=== PATIENT | male | born 1955 | race Caucasian/White ===

== ENCOUNTER → 2016-04-30 | Outpatient (CLI) | payer OTHER ==
[~2016-04-30] MED LIST: GENT3.5O18 OD; WRF1T PO
[2016-04-30 17:00] LABS: ANION GAP 10 MMOL/L (5-14); BLOOD UREA NITROGEN 15 MG/DL (7-18); BUN/CREATININE RATIO 15; CALCIUM 9.8 MG/DL (8.5-10.1); CARBON DIOXIDE 26 MMOL/L (21-32); CHLORIDE 102 MMOL/L (98-107); CREATININE SERUM 1.01 MG/DL (0.60-1.30); GFR ESTIMATED > 60; GLUCOSE 88 MG/DL (70-105); POTASSIUM 4.1 MMOL/L (3.6-5.0); SODIUM 138 MMOL/L (135-145); URIC ACID 6.5 MG/DL (2.6-7.2)
--- NOTE | 2016-04-30 17:10 | Diagnostic Imaging Report ---
INDICATION: Left foot pain. Possible gout. FINDINGS: There are small periarticular erosions demonstrated about the distal interphalangeal joint of the great toe. There are no erosions evident at the first metatarsophalangeal joint. There is no evidence of an acute fracture. There is no dislocation. There is no focal soft tissue abnormality. IMPRESSION: 1. There are small periarticular erosions associated with the medial aspect of the interphalangeal joint of the great toe. Gout could not be excluded. There is no fracture or dislocation. Dictated by: Dictated on workstation # [id number]
== END ==
LOC: RAD 16:25
PROVIDERS: ATTEND Internal Medicine
DX: M85.872 Other specified disorders of bone density and structure, left ankle and foot (principal); M10.9 Gout, unspecified; E78.00 Pure hypercholesterolemia, unspecified
CPT/HCPCS: 36415; 73630; 80048; 84550; 85652

== ENCOUNTER → 2016-12-31 | Outpatient (CLI) | payer OTHER | LOC: WOUNDCARE 13:33 | PROVIDERS: ATTEND Surgery | DX: I70.232 Atherosclerosis of native arteries of right leg with ulceration of calf (principal); I87.331 Chronic venous hypertension (idiopathic) with ulcer and inflammation of right lower extremity; L97.212 Non-pressure chronic ulcer of right calf with fat layer exposed; I83.811 Varicose veins of right lower extremity with pain; I89.0 Lymphedema, not elsewhere classified | CPT/HCPCS: 11042 ==

== ENCOUNTER → 2017-01-09 | Outpatient (CLI) | payer OTHER | LOC: WOUNDCARE 08:54 | PROVIDERS: ATTEND Nurse Practitioner | DX: L97.212 Non-pressure chronic ulcer of right calf with fat layer exposed (principal); I87.331 Chronic venous hypertension (idiopathic) with ulcer and inflammation of right lower extremity; I89.0 Lymphedema, not elsewhere classified; I70.232 Atherosclerosis of native arteries of right leg with ulceration of calf | CPT/HCPCS: 11042 ==

== ENCOUNTER → 2017-01-16 | Outpatient (CLI) | payer OTHER | LOC: WOUNDCARE 09:00 | PROVIDERS: ATTEND Surgery | DX: L97.212 Non-pressure chronic ulcer of right calf with fat layer exposed (principal); I87.331 Chronic venous hypertension (idiopathic) with ulcer and inflammation of right lower extremity; I89.0 Lymphedema, not elsewhere classified; I70.232 Atherosclerosis of native arteries of right leg with ulceration of calf | CPT/HCPCS: 29581 ==

== ENCOUNTER → 2017-01-23 | Outpatient (CLI) | payer OTHER | LOC: WOUNDCARE 08:54 | PROVIDERS: ATTEND Surgery | DX: L97.212 Non-pressure chronic ulcer of right calf with fat layer exposed (principal); I87.331 Chronic venous hypertension (idiopathic) with ulcer and inflammation of right lower extremity; I89.0 Lymphedema, not elsewhere classified; I70.232 Atherosclerosis of native arteries of right leg with ulceration of calf | CPT/HCPCS: 29581 ==

== ENCOUNTER 2018-03-15 17:07 | Inpatient (IN) | payer OTHER ==
[~2018-03-15] VITALS: Ht 177.8 cm; Wt 117.0 kg
[2018-03-15 17:05] VITALS: BP 137/82
[2018-03-15] MEDS ORDERED: VANCOMYCIN INJECTION 1,000 MG in NS (IVPB) 250 ML IV SCH (17:30)
[2018-03-15] MEDS ORDERED: IBUPROFEN TABLET 200 MG TAB PO PRN (17:30)
[2018-03-15] MEDS ORDERED: POLYETHYLENE GLYCOL 17 GM (MIRALAX) PACK PO PRN (17:30)
[2018-03-15] MEDS ORDERED: fentaNYL INJECTION 100 MCG/2 ML AMP IVP PRN (17:30)
[2018-03-15] MEDS ORDERED: ALPRAZolam 0.25 MG (XANAX) TAB PO PRN (17:30)
[2018-03-15] MEDS ORDERED: diphenhydrAMINE 25 MG TAB (BENADRYL) PO PRN (17:30)
[2018-03-15] MEDS ORDERED: HYDROcodone/APAP 5 MG/325 MG (LORTAB) TAB PO PRN (17:30)
[2018-03-15] MEDS ORDERED: ONDANSETRON 4 MG/2 ML (SDV) Z0FRAN IVP PRN (17:30)
[2018-03-15] MEDS ORDERED: CALCIUM CARBONATE 500 MG (TUMS) TAB.CHEW PO PRN (17:30)
[2018-03-15 17:40] VITALS: BP 125/79
--- OUTSIDE RECORDS SUMMARY | 2018-03-15 17:58 | XMS REPORT | Clinical Summary ---
Author Author [facility] Organization [facility] Address Unknown Phone Unavailable Care Team Providers Care Group Fitness Manager Name Role Phone Noemy Lebron DO PCP Tyree Sadler MD [phone] Source Comments Some departments are not documenting in the electronic medical record. If you do not see the information that you expected, contact Release of Information in the Health Information Management department at [phone] for further assistance in locating additional records.[facility] Allergies No Known Allergies Medications End Date Status Medication Sig Dispensed Refills Start Date Active allopurinol (ZYLOPRIM) Take 100 mg 0 100 mg tablet by mouth daily. Take with food. Active hydroCHLOROthiazide Take 25 mg by 0 (HYDRODIURIL) 25 mg mouth every tablet morning. Active warfarin (COUMADIN) 5 mg Take 5 mg by 0 tablet mouth daily. Active potassium chloride SR Take 10 mEq 0 (K-DUR) 10 mEq tablet by mouth daily. Take with a meal and a full glass of water. Active metoprolol XL (TOPROL XL) Take 100 mg 0 100 mg extended release by mouth tablet daily. Active LISINOPRIL PO Take 2.5 mg 0 by mouth. Active MEDICAL SUPPLY, Use as 0 MISCELLANEOUS directed. (COMPRESSION STOCKINGS 20-30 mm hg MIS) pressure Active Problems Problem Noted Date Postoperative visit 07/19/2017 Chronic venous hypertension with inflammation, right 02/27/2017 Venous insufficiency of right leg 02/25/2017 Chronic deep vein thrombosis (DVT) of femoral vein of both lower 01/06/2017 extremities Postphlebitic syndrome with both ulcer and inflammation 01/06/2017 Family History Medical History Relation Name Comments Cancer Father Stroke Father Heart Disease Maternal Grandfather None Reported Maternal Grandmother None Reported Mother None Reported Paternal Grandfather None Reported Paternal Grandmother None Reported Sister Relation Name Status Comments Father Maternal Grandfather Maternal Grandmother Mother Paternal Grandfather Paternal Grandmother Sister 1 Social History Date Tobacco Use Types Packs/Day Years Used Quit: 01/06/1987 Former Smoker Smokeless Tobacco: Never Used Alcohol Use Drinks/Week oz/Week Comments No Sex Assigned at Date Recorded Not on file Industry Job Start Date Occupation Not on file Not on file Not on file Travel End Travel History Travel Start No recent travel history available. Last Filed Vital Signs Time Taken Vital Sign Reading 07/14/2017 11:48 AM CDT Blood Pressure 160/70 - Pulse - - Temperature - - Respiratory Rate - - Oxygen Saturation - - Inhaled Oxygen - Concentration 07/14/2017 11:48 AM CDT Weight 117.5 kg (259 lb) 07/14/2017 11:48 AM CDT Height 177.8 cm (5' 10") 07/14/2017 11:48 AM CDT Body Mass Index 37.16 Plan of Treatment Health Maintenance Due Date Last Done Comments HEPATITIS C SCREENING 1955 PHYSICAL (COMPREHENSIVE) 01/27/1963 EXAM HIV SCREENING 01/27/1971 DTAP/TDAP VACCINES (1 - 01/27/1974 Tdap) COLORECTAL CANCER 01/27/2006 SCREENING SHINGLES RECOMBINANT 01/27/2006 VACCINE (1 of 2) INFLUENZA VACCINE 10/28/2017 Results Not on filefrom Last 3 Months Advance Directives Patient has advance care planning documents on file. For more information, please contact: [facility] [address] [place] [address]
--- OUTSIDE RECORDS SUMMARY | 2018-03-15 17:58 | XMS REPORT | Clinical Summary ---
Author Author [facility] Organization [facility] Address Unknown Phone Unavailable Care Team Providers Care El Teacher Name Role Phone Noemy Lebron MD PCP Allergies No Known Allergies Current Medications Prescription Sig. Disp. Refills Start End Date Status Date metoprolol tartrate Take 100 mg by mouth Active (LOPRESSOR) 100 MG tablet daily. lisinopril Take 5 mg by mouth daily. Active (PRINIVIL,ZESTRIL) 2.5 MG tablet hydroCHLOROthiazide Take 25 mg by mouth Active (HYDRODIURIL) 25 MG daily. tablet allopurinol (ZYLOPRIM) Take 100 mg by mouth Active 100 MG tablet daily. warfarin (COUMADIN) 5 MG Take 5 mg by mouth every Active tablet evening. enoxaparin (LOVENOX) 100 Inject 100 mg under the Active mg/mL Syrg skin every 12 (twelve) hours. ofloxacin (OCUFLOX) 0.3 % Instill 1 drop into the 5 mL 0 06/02/20 Active ophthalmic solution right eye 4 (four) times 18 a day. homatropine (ISOPTO Instill 1 drop into the 15 mL 0 06/02/20 Active HOMATROPINE) 5 % right eye 2 (two) times a 18 ophthalmic solution day. prednisoLONE acetate Instill 1 drop into the 5 mL 0 06/02/20 Active (PRED FORTE) 1 % right eye 4 (four) times 18 ophthalmic suspension a day. Active Problems Problem Noted Date Recent partial retinal detachment, right 08/26/2017 Lattice degeneration of peripheral retina, left 08/26/2017 Social History Tobacco Use Types Packs/Day Years Used Date Former Smoker Smokeless Tobacco: Never Used Alcohol Use Drinks/Week oz/Week Comments No Sex Assigned at Date Recorded Not on file Last Filed Vital Signs Vital Sign Reading Time Taken Blood Pressure 116/62 08/29/2017 11:44 AM CDT Pulse 55 08/29/2017 11:44 AM CDT Temperature 37.1 C (98.8 F) 08/29/2017 11:44 AM CDT Respiratory Rate 16 08/29/2017 11:44 AM CDT Oxygen Saturation 93% 08/29/2017 11:44 AM CDT Inhaled Oxygen - - Concentration Weight 112 kg (247 lb) 08/28/2017 8:36 AM CDT Height 177.8 cm (5' 10") 08/28/2017 8:29 PM CDT Body Mass Index 35.44 08/28/2017 8:36 AM CDT Plan of Treatment Not on file Implants Implanted Type Area Garbage Pick Up Man Device Expiration Model / Identifier Date Serial / Lot Implant Eye Retinal Sponge Grooved Non-Tissue Right: Eye PALAUAN 2020 92-50-6.4 2.3mm X 6.4mm Style 516g 92-50-6.4 Implant OPHTHALMIC / - [id number] / Implanted: Qty: 1 on 08/28/2017 by [id number] Antonio Colbert MD Implant Eye Scleral Buckle Band Non-Tissue Right: Eye PALAUAN 2020 92-02 / Silicone Style 240 2.5 92-02 - Implant OPHTHALMIC / [id number] Implanted: Qty: 1 on 08/28/2017 by Antonio Colbert MD Trapeze In Leg Vein Occlusion Device Results Not on filefrom Last 3 Months
--- OUTSIDE RECORDS SUMMARY | 2018-03-15 17:59 | XMS REPORT | Continuity of Care Document ---
Author Author [facility] Organization [facility] Address Unknown Phone Unavailable Allergies Active Description Code Type Severity Reaction Onset Reported/Identified Relationship to Patient Clinical Status Yes No Known Drug Allergies [id number] Drug Allergy Unknown N/A 07/13/2011 Medications There is no data. Problems Date Dx Coded Attending Type Code Diagnosis Diagnosed By 07/13/2011 Ot 918.0 SUPERFIC INJ PERIOCULAR 07/13/2011 Ot E000.8 OTHER EXTERNAL CAUSE STATUS 07/13/2011 Ot E029.9 OTHER ACTIVITY 07/13/2011 Ot E849.0 ACCIDENT IN HOME 07/13/2011 Ot E928.9 ACCIDENT NOS 07/13/2011 Ot V06.1 DIPHTHERIA- TETANUS-PERTUSSIS, COMBINED [ 01/23/2015 ELISEO PENNINGTON, PAULA Fuentes Ot R10.32 02/14/2015 ELISEO PENNINGTON, PAULA Fuentes Ot R10.32 04/03/2015 VASQUEZ RINALDI MD Ot I82.431 04/03/2015 VASQUEZ RINALDI MD Ot I82.441 04/03/2015 VASQUEZ RINALDI MD Ot I89.0 04/24/2015 VASQUEZ RINALDI MD Ot I82.431 04/24/2015 VASQUEZ RINALDI MD Ot I82.441 04/24/2015 VASQUEZ RINALDI MD Ot I89.0 04/30/2016 ELISEO PENNINGTON, PAULA Fuentes Ot R10.32 LEFT LOWER QUADRANT PAIN 04/30/2016 VASQUEZ RINALDI MD Ot I82.431 ACUTE EMBOLISM AND THROMBOSIS OF RIGHT P 04/30/2016 VASQUEZ RINALDI MD Ot I82.441 ACUTE EMBOLISM AND THROMBOSIS OF RIGHT T 04/30/2016 NIMCO PENNINGTON, VASQUEZ Dos Santos Ot I89.0 LYMPHEDEMA, NOT ELSEWHERE CLASSIFIED 05/01/2016 MAGGIE LÓPEZ DO Ot E78.00 PURE HYPERCHOLESTEROLEMIA, UNSPECIFIED 05/01/2016 MAGGIE LÓPEZ DO Ot M10.9 GOUT, UNSPECIFIED 05/01/2016 MAGGIE LÓPEZ DO Ot M85.872 OTH DISRD OF BONE DENSITY AND STRUCTURE, 06/02/2016 ULI LÓPEZ DOI Ot E78.00 PURE HYPERCHOLESTEROLEMIA, UNSPECIFIED 06/02/2016 RENE RUST MAGGIE Ot M10.9 GOUT, UNSPECIFIED 06/02/2016 MAGGIE LÓPEZ DO Ot M85.872 [facility] DISRD OF BONE DENSITY AND STRUCTURE, 01/19/2017 VASQUEZ RINALDI MD, Ot 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 01/19/2017 VASQUEZ RINALDI MD, Ot I87.331 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 01/19/2017 VASQUEZ RINALDI MD, Ot I89.0 LYMPHEDEMA, NOT ELSEWHERE CLASSIFIED 01/19/2017 VASQUEZ RINALDI MD, Ot L97.212 NON-PRESSURE CHRONIC ULCER OF RIGHT CALF 01/22/2017 VASQUEZ RINALDI MD, Ot 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 Results Test Result Range Whole blood basic metabolic panel - 04/30/16 16:37 Serum or plasma sodium measurement (moles/volume) 138 mmol/L 135-145 Serum or plasma potassium measurement (moles/volume) 4.1 mmol/L 3.6-5.0 Serum or plasma chloride measurement (moles/volume) 102 mmol/L 98-107 Carbon dioxide 26 mmol/L 21-32 Serum or plasma anion gap determination (moles/volume) 10 mmol/L 5-14 Serum or plasma urea nitrogen measurement (mass/volume) 15 mg/dL 7-18 Serum or plasma creatinine measurement (mass/volume) 1.01 mg/dL 0.60-1.30 Serum or plasma urea nitrogen/creatinine mass ratio 15 NRG Serum or plasma creatinine measurement with calculation of estimated glomerular filtration rate > NRG Serum or plasma glucose measurement (mass/volume) 88 mg/dL 70-105 Serum or plasma calcium measurement (mass/volume) 9.8 mg/dL 8.5-10.1 Serum or plasma uric acid measurement (mass/volume) - 04/30/16 16:37 Serum or plasma uric acid measurement (mass/volume) 6.5 mg/dL 2.6-7.2 Erythrocyte sedimentation rate by westergren method - 04/30/16 16:37 Erythrocyte sedimentation rate by westergren method 4 mm 0-30 Encounters ACCT No. Visit Date/Time Discharge Status Pt. Type Provider Facility Loc./Unit Complaint [id number] 01/30/2017 08:04:00 01/30/2017 23:59:59 CLS Outpatient VASQUEZ RINALDI MD [facility] [id number] 01/23/2017 08:54:00 01/23/2017 23:59:59 CLS Outpatient VASQUEZ RINALDI MD [facility] [id number] 01/16/2017 09:00:00 01/16/2017 23:59:59 CLS Outpatient VASQUEZ RINALDI MD [facility] [id number] 01/09/2017 08:54:00 01/09/2017 23:59:59 CLS Outpatient DOUGLAS BUSTOS APRN [facility] [id number] 12/31/2016 13:33:00 12/31/2016 23:59:59 CLS Outpatient VASQUEZ RINALDI MD [facility] [id number] 04/30/2016 16:25:00 04/30/2016 23:59:59 CLS Outpatient MAGGIE LÓPEZ DO [facility] RAD PAIN LEFT FOOT [id number] 04/25/2015 00:10:00 04/25/2015 23:59:59 CLS Preadmit VASQUEZ RINALDI MD [facility] [id number] 04/02/2015 10:23:00 04/24/2015 00:01:00 DIS Outpatient VASQUEZ RINALDI MD [facility] [id number] 01/08/2015 16:47:00 01/08/2015 23:59:59 CLS Outpatient ELISEO PENNINGTON, PAULA Fuentes [facility] RAD LEFT ING PAIN [id number] 07/13/2011 09:23:00 Document Registration
[2018-03-15] MEDS ORDERED: PIPERACILLIN/TAZO 4.5 GM/NS 100 ML IV NR ×2 (18:00)
[2018-03-15] MEDS ORDERED: HYDR25TA4 PO (19:00)
[2018-03-15] MEDS ORDERED: VANCOMYCIN 2000 MG/NS 500 ML IVPB IV SCH ×2 (19:00)
[2018-03-15] MEDS ORDERED: WARF5TAB PO (19:00)
[2018-03-15] MEDS ORDERED: ALLO300T80 PO (19:01)
[2018-03-15 19:02] LABS: BASOPHILS # (AUTO) 0.1 10^3/uL (0.0-0.1); BASOPHILS % (AUTO) 1 % (0-10); EOSINOPHILS # (AUTO) 0.3 10^3/uL (0.0-0.3); EOSINOPHILS % (AUTO) 3 % (0-10); HEMATOCRIT 43 % (40-54); HEMOGLOBIN 14.4 G/DL (13.3-17.7); LYMPHOCYTES # (AUTO) 2.8 X 10^3 (1.0-4.0); LYMPHOCYTES % (AUTO) 35 % (12-44); MEAN CORPUSCULAR HEMOGLOBIN 30 PG (25-34); MEAN CORPUSCULAR HGB CONC 33 G/DL (32-36); MEAN CORPUSCULAR VOLUME 89 FL (80-99); MEAN PLATELET VOLUME 10.8 FL (7.4-10.4); MONOCYTES # (AUTO) 0.5 X 10^3 (0.0-1.0); MONOCYTES % (AUTO) 6 % (0-12); NEUTROPHILS # (AUTO) 4.5 X 10^3 (1.8-7.8); NEUTROPHILS % (AUTO) 55 % (42-75); PLATELET COUNT 239 10^3/uL (130-400); RED BLOOD COUNT 4.83 10^6/uL (4.35-5.85); RED CELL DISTRIBUTION WIDTH 14.1 % (10.0-14.5); WHITE BLOOD COUNT 8.1 10^3/uL (4.3-11.0)
[2018-03-15] MEDS ORDERED: METO-395 PO (19:02)
[2018-03-15] MEDS ORDERED: INDO25CA15 PO (19:04)
[2018-03-15] MEDS ORDERED: LISI2.5T PO (19:06)
[2018-03-15] MEDS ORDERED: POTA10TA6 PO (19:07)
[2018-03-15 19:08] LABS: INR 2.2 (0.8-1.4); PROTHROMBIN TIME PATIENT 24.6 SEC (12.2-14.7)
[2018-03-15 19:16] LABS: ALANINE AMINOTRANSFERASE 33 U/L (0-55); ALBUMIN 3.9 GM/DL (3.2-4.5); ALKALINE PHOSPHATASE 72 U/L (40-136); BILIRUBIN,TOTAL 0.4 MG/DL (0.1-1.0); BUN/CREATININE RATIO 18; CALCIUM 9.6 MG/DL (8.5-10.1); CARBON DIOXIDE 23 MMOL/L (21-32); CHLORIDE 106 MMOL/L (98-107); CREATININE SERUM 0.83 MG/DL (0.60-1.30); GFR ESTIMATED > 60; GLUCOSE 86 MG/DL (70-105); POTASSIUM 3.7 MMOL/L (3.6-5.0); SODIUM 139 MMOL/L (135-145)
[2018-03-15] MEDS ORDERED: ENOXAPARIN 40 MG/0.4 ML (LOVENOX) SYR SC SCH (19:30)
[2018-03-15 19:35] VITALS: BP 125/75
[2018-03-15] MEDS ORDERED: FLU QUADRIvalent (5+ YOA) 2018-2019 (AFLURIA) 0.5 ML IM ONE (20:30)
[2018-03-15] MEDS: BETAMETHASONE/CLOTRIM CREAM (LOTRISONE) 45 GM TP SCH (21:25)
[2018-03-15] MEDS: methylPREDNISolone 40 MG/ML (Solu-MEDROL) VIAL IV SCH (21:25)
[2018-03-15] MEDS: TRIAMCINOLONE 0.5% CR (KENALOG) 15 GM TUBE TOP SCH (21:26)
[2018-03-16 00:08] VITALS: BP 147/77
[2018-03-16] MEDS: PIPERACILLIN SODIUM/TAZOBACTAM 4.5 GM in NS (IVPB) 100 ML IV SCH ×3 (00:16→16:02)
[2018-03-16 04:00] VITALS: BP 132/71
[2018-03-16] MEDS: VANCOMYCIN 1,750 MG/NS 500 ML IVPB IV SCH ×4 (06:09→18:45)
[2018-03-16 06:10] LABS: BASOPHILS % (AUTO) 0 % (0-10); EOSINOPHILS % (AUTO) 0 % (0-10); HEMATOCRIT 46 % (40-54); HEMOGLOBIN 15.6 G/DL (13.3-17.7); LYMPHOCYTES # (AUTO) 1.2 X 10^3 (1.0-4.0); LYMPHOCYTES % (AUTO) 20 % (12-44); MEAN CORPUSCULAR HEMOGLOBIN 30 PG (25-34); MEAN CORPUSCULAR HGB CONC 34 G/DL (32-36); MEAN CORPUSCULAR VOLUME 89 FL (80-99); MEAN PLATELET VOLUME 10.7 FL (7.4-10.4); MONOCYTES # (AUTO) 0.1 X 10^3 (0.0-1.0); MONOCYTES % (AUTO) 1 % (0-12); NEUTROPHILS # (AUTO) 4.8 X 10^3 (1.8-7.8); NEUTROPHILS % (AUTO) 80 % (42-75); PLATELET COUNT 270 10^3/uL (130-400); RED BLOOD COUNT 5.18 10^6/uL (4.35-5.85); RED CELL DISTRIBUTION WIDTH 14.2 % (10.0-14.5)
[2018-03-16 06:21] LABS: INR 2.1 (0.8-1.4); PROTHROMBIN TIME PATIENT 23.8 SEC (12.2-14.7)
[2018-03-16 06:27] LABS: ALANINE AMINOTRANSFERASE 34 U/L (0-55); ALBUMIN 3.8 GM/DL (3.2-4.5); ALKALINE PHOSPHATASE 73 U/L (40-136); BILIRUBIN,TOTAL 0.5 MG/DL (0.1-1.0); BUN/CREATININE RATIO 19; CALCIUM 9.2 MG/DL (8.5-10.1); CARBON DIOXIDE 20 MMOL/L (21-32); CHLORIDE 111 MMOL/L (98-107); CREATININE SERUM 0.85 MG/DL (0.60-1.30); GFR ESTIMATED > 60; GLUCOSE 156 MG/DL (70-105); POTASSIUM 4.1 MMOL/L (3.6-5.0); SODIUM 140 MMOL/L (135-145); TOTAL PROTEIN 6.9 GM/DL (6.4-8.2)
[2018-03-16 08:00] VITALS: BP 150/80
[2018-03-16] MEDS: methylPREDNISolone 40 MG/ML (Solu-MEDROL) VIAL IV SCH ×2 (08:21→21:47)
[2018-03-16] MEDS: INDOMETHACIN 25 MG (INDOCIN) CAP PO SCH (08:22)
[2018-03-16] MEDS: KCL 10 MEQ TAB (MICRO K) PO SCH (08:22)
[2018-03-16] MEDS: BETAMETHASONE/CLOTRIM CREAM (LOTRISONE) 45 GM TP SCH ×2 (08:23→21:49)
[2018-03-16] MEDS: HYDROCHLOROTHIAZIDE 25 MG (HCTZ) TAB PO SCH (08:23)
[2018-03-16] MEDS: lisINopril 5 MG (PRINIVIL) TABLET PO SCH (08:23)
[2018-03-16] MEDS: ALLOPURINOL 300 MG (ZYLOPRIM) TAB PO SCH (08:23)
[2018-03-16] MEDS: TRIAMCINOLONE 0.5% CR (KENALOG) 15 GM TUBE TOP SCH ×2 (08:24→21:48)
[2018-03-16] MEDS: meTOprolol SUCCINATE 100 MG (TOPROL XL) TAB PO SCH (08:25)
[2018-03-16] MEDS ORDERED: ALLOPURINOL 300 MG PO SCH (09:00)
[2018-03-16] MEDS ORDERED: INDOMETHACIN 25 MG PO SCH (09:00)
[2018-03-16] MEDS ORDERED: NON-FORMULARY MEDICATION 1 EA EA (Lisinopril 2.5 MG) PO SCH (09:00)
[2018-03-16] MEDS ORDERED: NON-FORMULARY MEDICATION 1 EA EA (Hydrochlorothiazide 25 MG) PO SCH (09:00)
--- NOTE | 2018-03-16 09:14 | Diagnostic Imaging Report ---
INDICATION: Right leg cellulitis, edema, pain. TECHNIQUE: Grayscale with color-flow and Doppler waveform evaluation of the right lower extremity deep venous system. CORRELATION STUDY: None FINDINGS: Color and grayscale sonographic images demonstrate no intraluminal defect within the visualized portion of the common femoral, superficial femoral and/or popliteal veins to suggest thrombus formation. These vessels demonstrate normal response to compression and augmentation. No soft tissue fluid collection. IMPRESSION: 1. Negative for deep venous thrombosis of the right leg. Dictated by: Dictated on workstation # [id number]
--- NOTE | 2018-03-16 10:20 | History & Physical-Hospitalist ---
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 They place wraps on the right leg daily since vascular surgery done in the past and noted the swelling had increased and redness had started which prompted the call to my office yesterday. He was found to have complicated cellulitis in need of IV abx to resolve. He was also itching in his arms which had just started the prior 2 days. Source: patient, family Exam Limitations: no limitations Date Seen 03/16/18 Time Seen by a Provider: 09:30 Attending Physician Noemy López DO PCP Noemy López DO Referring Physician Date of Admission Mar 15, 2018 at 17:40 Home Medications & Allergies Home Medications Reviewed patient Home Medication Reconciliation performed by pharmacy medication reconciliations residential service technician and/or nursing. Patients Allergies have been reviewed. Allergies Allergies Coded Allergies No Known Drug Allergies (Unverified07/13/11) Past Yivhtrw-Pgtrjn-Afmhyp Hx Past Med/Social Hx: Reviewed Nursing Past Med/Soc Hx, Reviewed and Corrections made Patient Social History Marrital Status: Employed/Student: employed ([employer]) Alcohol Use: Denies Use Recreational Drug Use: No Smoking Status: Former Smoker Former Smoker, Quit: Mar 15, 1982 Type Used: Cigarettes Physical Abuse Screen: No Sexual Abuse: No Recent Foreign Travel: No Recent Hopitalizations: Yes Seasonal Allergies Seasonal Allergies: No Past Medical History Surgeries: Vascular Surgery (right leg in [place]) Currently Using CPAP: No Currently Using BIPAP: No Cardiac: Deep Vein Thrombosis, High Cholesterol, Hypertension Musculoskeletal: Fractures HEENT: Cataract History of Blood Disorders: Yes (DVT PROBLEMS ( PODDIBLE BLOOD DISORDER )) Family History Cardiovascular disease 19 FATHER Cataracts (NO) 19 FATHER Colon cancer 19 FATHER FH: lupus G8 SISTER Hypertension Review of Systems Constitutional: see HPI, weakness EENTM: no symptoms reported Cardiovascular: no symptoms reported Gastrointestinal: no symptoms reported Genitourinary: no symptoms reported Musculoskeletal: see HPI Skin: see HPI Psychiatric/Neurological: No Symptoms Reported All Other Systems Reviewed Negative Unless Noted: Yes Physical Exam Physical Exam Vital Signs Vital Signs - First Documented 03/15/18 17:40 Temp 97.5 Pulse 52 Resp 20 B/P (MAP) 125/79 (94) Pulse Ox 94 O2 Delivery Room Air Capillary Refill : Height, Weight, BMI Height: 5'10.00" Weight: 258lbs. 0.0oz. 117.342563hu; 37.0 BMI Method:Stated General Appearance: No Apparent Distress, WD/WN, Chronically ill Eyes: Bilateral Eye Normal Inspection, Bilateral Eye PERRL HEENT: PERRL/EOMI, Normal ENT Inspection, Pharynx Normal Neck: Full Range of Motion, Normal Inspection, Non Tender, Supple, Carotid Bruit Respiratory: Chest Non Tender, Lungs Clear, Normal Breath Sounds, No Accessory Muscle Use, No Respiratory Distress Cardiovascular: Regular Rate, Rhythm, No Gallop, No JVD, No Murmur, Normal Peripheral Pulses Gastrointestinal: Normal Bowel Sounds, No Organomegaly, No Pulsatile Mass, Non Tender, Soft Back: Normal Inspection, No CVA Tenderness, No Vertebral Tenderness Extremity: Normal Capillary Refill, Normal Inspection, Normal Range of Motion, Non Tender, No Calf Tenderness, Inflammation (R leg), Pedal Edema Neurologic/Psychiatric: Alert, Oriented x3, No Motor/Sensory Deficits, Normal Mood/Affect Skin: Normal Color, Warm/Dry, Erythema (R leg), Rash (L arm) Lymphatic: No Adenopathy Results Results/Procedures Labs Laboratory Tests 03/15/18 18:40 03/16/18 05:45 Patient resulted labs reviewed. Assessment/Plan Admission Diagnosis Assessment: Right leg cellulitis Prior DVT's in right leg maintained on Coumadin with INR 2.2 with no DVT on venous doppler HTN Gout Plan: IV abx Pain control Home meds Admission Status: Inpatient Order (span 2 midnights) Reason for Inpatient Admission: Severe cellulits in complicated right leg with lymphedema and prior DVT's will require 3 days of hospital care Diagnosis/Problems Diagnosis/Problems (1) History of DVT of lower extremity Status: Chronic (2) Cellulitis and abscess of right leg Status: Acute (3) Lymphedema of right lower extremity Status: Chronic (4) Hypertension Status: Chronic Qualifiers: Hypertension type: essential hypertension Qualified Codes: I10 - Essential (primary) hypertension (5) Dermatitis Status: Acute (6) Gout Status: Chronic Qualifiers: Gout site: unspecified site Gout etiology: unspecified cause Chronicity: unspecified Qualified Codes: M10.9 - Gout, unspecified Clinical Quality Measures DVT/VTE Risk/Contraindication: Risk Factor Score Per Nursin RFS Level Per Nursing on Admit: 4+=Very High JUAN DAVILA MED STUDENT 03/16/18 1111: History of Present Illness HPI/Chief Complaint CC: R leg cellulitis HPI: This is a 63 yo WM with a PMHx of DVTs who was admitted to [facility] yesterday due to R leg cellulitis. Pt states that the erythema and swelling began on Thursday and continued to get worse. He thought the infection might have gone to his blood stream because he "started to become itchy all over". Denies any fevers, N/V/D. Does not report any pain in his leg. CBC and CMP on admission were WNL. Doppler u/s of R leg was negative for DVT. Pt was placed on vancomycin and piperacillin/tazobactam on admission. Source: patient Past Kzbjqkz-Nzlpnx-Ytvubx Hx Family History Cardiovascular disease 19 FATHER Cataracts (NO) 19 FATHER Colon cancer 19 FATHER FH: lupus G8 SISTER Review of Systems Constitutional: no symptoms reported Respiratory: no symptoms reported Cardiovascular: no symptoms reported Musculoskeletal: see HPI Skin: see HPI Psychiatric/Neurological: No Symptoms Reported Physical Exam Physical Exam General Appearance: No Apparent Distress Respiratory: Chest Non Tender, Lungs Clear, Normal Breath Sounds Cardiovascular: Regular Rate, Rhythm, No Murmur, Normal Peripheral Pulses Extremity: Normal Capillary Refill, Inflammation (R leg), Swelling (R leg) Neurologic/Psychiatric: Alert, Oriented x3, Normal Mood/Affect Skin: Warm/Dry, Erythema (R leg), Rash (L arm) Assessment/Plan Admission Diagnosis R leg cellulitis Assessment and Plan Assessment: R leg cellulitis Hx of DVTs HTN Plan: Continue IV abx Lovenox Elevate leg above heart Keep wrapping off of leg for now Monitor for pain Diagnosis/Problems Diagnosis/Problems (1) Cellulitis and abscess of right leg Status: Acute (2) History of DVT of lower extremity Status: Chronic NOEMY LÓPEZ DO Mar 16, 2018 10:20 JUAN DAVILA MED STUDENT Mar 16, 2018 11:11
[2018-03-16] MEDS ORDERED: PRED5DRO24 OD (10:53)
[2018-03-16] MEDS ORDERED: ALLO100T PO (10:55)
[2018-03-16] MEDS ORDERED: LISI2.5T PO (10:55)
[2018-03-16 11:26] VITALS: BP 145/84
[2018-03-16 16:05] VITALS: BP 152/62
[2018-03-16 19:30] VITALS: BP 130/76
[2018-03-16] MEDS: warFARin 5 MG (COUMADIN) TAB PO SCH (21:48)
[2018-03-17] VITALS: BP 128/59
[2018-03-17] MEDS: PIPERACILLIN SODIUM/TAZOBACTAM 4.5 GM in NS (IVPB) 100 ML IV SCH ×3 (00:06→16:05)
[2018-03-17 04:00] VITALS: BP 142/68
[2018-03-17 04:37] LABS: PROTHROMBIN TIME PATIENT 22.5 SEC (12.2-14.7)
[2018-03-17] MEDS ORDERED: TROUGH ORDER-PHARMACY XX NR (06:00)
[2018-03-17] MEDS: VANCOMYCIN 1,750 MG/NS 500 ML IVPB IV SCH ×4 (06:49→18:11)
[2018-03-17 08:00] VITALS: BP 140/73
[2018-03-17] MEDS: KCL 10 MEQ TAB (MICRO K) PO SCH (08:22)
[2018-03-17] MEDS: meTOprolol SUCCINATE 100 MG (TOPROL XL) TAB PO SCH (08:22)
[2018-03-17] MEDS: ALLOPURINOL 300 MG (ZYLOPRIM) TAB PO SCH (08:22)
[2018-03-17] MEDS: methylPREDNISolone 40 MG/ML (Solu-MEDROL) VIAL IV SCH (08:22)
[2018-03-17] MEDS: INDOMETHACIN 25 MG (INDOCIN) CAP PO SCH (08:23)
[2018-03-17] MEDS: lisINopril 5 MG (PRINIVIL) TABLET PO SCH (08:23)
[2018-03-17] MEDS: HYDROCHLOROTHIAZIDE 25 MG (HCTZ) TAB PO SCH (08:23)
[2018-03-17] MEDS: BETAMETHASONE/CLOTRIM CREAM (LOTRISONE) 45 GM TP SCH ×2 (08:24→20:44)
[2018-03-17] MEDS: TRIAMCINOLONE 0.5% CR (KENALOG) 15 GM TUBE TOP SCH ×2 (08:24→20:44)
--- NOTE | 2018-03-17 10:37 | Progress Note-Hospitalist ---
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 They place wraps on the right leg daily since vascular surgery done in the past and noted the swelling had increased and redness had started which prompted the call to my office yesterday. He was found to have complicated cellulitis in need of IV abx to resolve. He was also itching in his arms which had just started the prior 2 days. Subjective/Events-last exam Patient did not sleep too well last night so he was sleeping when I saw him this morning reports no pain issues Improved right leg Focused Exam Lactate Level 03/15/18 18:40: Lactic Acid Level 0.85 Objective Exam Vital Signs Vital Signs Date Time Temp Pulse Resp B/P (MAP) Pulse Ox O2 Delivery O2 Flow Rate FiO2 03/17/18 15:41 97.4 55 18 134/60 (84) 94 Room Air Capillary Refill : General Appearance: No Apparent Distress, WD/WN, Chronically ill, Other ( sleeping) Extremity: Swelling (improved right leg with resolving redness) Results/Procedures Lab Patient resulted labs reviewed. Assessment/Plan Assessment and Plan Assess & Plan/Chief Complaint Assessment: Continue abx Tinea cream to leg Likely DC tomorrow Decrease steroids Diagnosis/Problems Diagnosis/Problems (1) History of DVT of lower extremity Status: Chronic (2) Cellulitis and abscess of right leg Status: Acute (3) Lymphedema of right lower extremity Status: Chronic (4) Hypertension Status: Chronic Qualifiers: Hypertension type: essential hypertension Qualified Codes: I10 - Essential (primary) hypertension (5) Dermatitis Status: Acute (6) Gout Status: Chronic Qualifiers: Gout site: unspecified site Gout etiology: unspecified cause Chronicity: unspecified Qualified Codes: M10.9 - Gout, unspecified Clinical Quality Measures DVT/VTE Risk/Contraindication: Risk Factor Score Per Nursin RFS Level Per Nursing on Admit: 4+=Very High JUAN DAVILA MED STUDENT 03/17/18 1122: Subjective Subjective/Events-last exam Pt did well overnight- no complaints or concerns this morning Swelling and erythema have decreased quite a bit overnight- pt denies any pain No bowel/bladder problems Objective Exam General Appearance: No Apparent Distress Respiratory: Lungs Clear, No Accessory Muscle Use, No Respiratory Distress Cardiovascular: Regular Rate, Rhythm, No Murmur Extremity: Normal Capillary Refill, No Calf Tenderness, Swelling (R leg) Neurologic/Psychiatric: Alert, Oriented x3, No Motor/Sensory Deficits, Normal Mood/Affect Assessment/Plan Assessment and Plan Assess & Plan/Chief Complaint Assessment: R leg cellulitis Hx of DVTs HTN Plan: IV abx Continue to elevate leg Pain mgmt Possible d/c tomorrow MAGGIE LÓPEZ DO Mar 17, 2018 10:37 JUAN DAVILA MED STUDENT Mar 17, 2018 11:22
[2018-03-17] MEDS: ACETAMINOPHEN 500 MG TAB (TYLENOL) PO PRN (12:08)
[2018-03-17 15:41] VITALS: BP 134/60
[2018-03-17] MEDS: warFARin 5 MG (COUMADIN) TAB PO SCH (20:43)
[2018-03-18] VITALS: BP 126/62
[2018-03-18] MEDS: PIPERACILLIN SODIUM/TAZOBACTAM 4.5 GM in NS (IVPB) 100 ML IV SCH ×2 (00:45→09:07)
[2018-03-18 03:49] LABS: BASOPHILS % (AUTO) 0 % (0-10); EOSINOPHILS % (AUTO) 0 % (0-10); HEMATOCRIT 43 % (40-54); HEMOGLOBIN 14.2 G/DL (13.3-17.7); LYMPHOCYTES # (AUTO) 2.9 X 10^3 (1.0-4.0); LYMPHOCYTES % (AUTO) 17 % (12-44); MEAN CORPUSCULAR HEMOGLOBIN 30 PG (25-34); MEAN CORPUSCULAR HGB CONC 33 G/DL (32-36); MEAN CORPUSCULAR VOLUME 89 FL (80-99); MEAN PLATELET VOLUME 10.5 FL (7.4-10.4); MONOCYTES # (AUTO) 0.9 X 10^3 (0.0-1.0); MONOCYTES % (AUTO) 5 % (0-12); NEUTROPHILS # (AUTO) 13.3 X 10^3 (1.8-7.8); NEUTROPHILS % (AUTO) 78 % (42-75); PLATELET COUNT 254 10^3/uL (130-400); RED BLOOD COUNT 4.78 10^6/uL (4.35-5.85); RED CELL DISTRIBUTION WIDTH 14.7 % (10.0-14.5); WHITE BLOOD COUNT 17.1 10^3/uL (4.3-11.0)
[2018-03-18 04:01] LABS: INR 2.1 (0.8-1.4); PROTHROMBIN TIME PATIENT 23.9 SEC (12.2-14.7)
[2018-03-18 04:07] LABS: ALANINE AMINOTRANSFERASE 28 U/L (0-55); ALBUMIN 3.2 GM/DL (3.2-4.5); ALKALINE PHOSPHATASE 62 U/L (40-136); BILIRUBIN,TOTAL 0.3 MG/DL (0.1-1.0); BUN/CREATININE RATIO 16; CALCIUM 8.3 MG/DL (8.5-10.1); CARBON DIOXIDE 23 MMOL/L (21-32); CHLORIDE 109 MMOL/L (98-107); CREATININE SERUM 0.93 MG/DL (0.60-1.30); GFR ESTIMATED > 60; GLUCOSE 128 MG/DL (70-105); POTASSIUM 3.4 MMOL/L (3.6-5.0); SODIUM 141 MMOL/L (135-145); TOTAL PROTEIN 5.8 GM/DL (6.4-8.2)
[2018-03-18 04:12] LABS: BAND NEUTROPHILS 1 %; BASOPHILS % (MANUAL) 0 %; EOSINOPHILS % (MANUAL) 0 %; LYMPHOCYTES % (MANUAL) 8 %; MONOCYTES % (MANUAL) 3 %; NEUTROPHILS % (MANUAL) 77 %; RBC MORPH NORMAL; REACTIVE LYMPHOCYTES 11 %
[2018-03-18] MEDS: VANCOMYCIN 1,750 MG/NS 500 ML IVPB IV SCH ×2 (06:46)
[2018-03-18] MEDS: ACETAMINOPHEN 500 MG TAB (TYLENOL) PO PRN (06:55)
[2018-03-18 08:00] VITALS: BP 153/86
[2018-03-18] MEDS ORDERED: methylPREDNISolone 40 MG/ML (Solu-MEDROL) VIAL IV SCH (09:00)
[2018-03-18] MEDS: KCL 10 MEQ TAB (MICRO K) PO SCH (09:07)
[2018-03-18] MEDS: lisINopril 5 MG (PRINIVIL) TABLET PO SCH (09:07)
[2018-03-18] MEDS: INDOMETHACIN 25 MG (INDOCIN) CAP PO SCH (09:07)
[2018-03-18] MEDS: HYDROCHLOROTHIAZIDE 25 MG (HCTZ) TAB PO SCH (09:07)
[2018-03-18] MEDS: ALLOPURINOL 300 MG (ZYLOPRIM) TAB PO SCH (09:07)
[2018-03-18] MEDS: TRIAMCINOLONE 0.5% CR (KENALOG) 15 GM TUBE TOP SCH (09:13)
[2018-03-18] MEDS: BETAMETHASONE/CLOTRIM CREAM (LOTRISONE) 45 GM TP SCH (09:13)
[2018-03-18] MEDS: meTOprolol SUCCINATE 100 MG (TOPROL XL) TAB PO SCH (09:16)
[2018-03-18] MEDS ORDERED: CLOT15CR6 TP (09:54)
[2018-03-18] MEDS ORDERED: DOXY100C2 PO (09:54)
--- NOTE | 2018-03-18 09:55 | Discharge Summary-Hospitalist ---
MAGGIE LÓPEZ DO 03/18/18 0955: Diagnosis/Chief Complaint Date of Admission Mar 15, 2018 at 17:40 Date of Discharge Discharge Date: Mar 18, 2018 Admission Diagnosis Assessment: Right leg cellulitis Prior DVT's in right leg maintained on Coumadin with INR 2.2 with no DVT on venous doppler HTN Gout Plan: IV abx Pain control Home meds Discharge Diagnosis (1) Cellulitis and abscess of right leg Status: Acute (2) History of DVT of lower extremity Status: Chronic (3) Lymphedema of right lower extremity Status: Chronic (4) Hypertension Status: Chronic (5) Dermatitis Status: Resolved (6) Gout Status: Chronic Discharge Summary Discharge Physical Exam Allergies: Coded Allergies: No Known Drug Allergies (Unverified , 07/13/11) Vitals & I&Os Vital Signs Date Time Temp Pulse Resp B/P (MAP) Pulse Ox O2 Delivery O2 Flow Rate FiO2 03/18/18 11:45 03/18/18 08:00 96.4 46 20 95 Room Air General Appearance: No Apparent Distress, WD/WN, Chronically ill, Obese Respiratory: Chest Non Tender, Lungs Clear, Normal Breath Sounds, No Accessory Muscle Use, No Respiratory Distress Cardiovascular: Regular Rate, Rhythm, No Edema, No Gallop, No JVD, No Murmur, Normal Peripheral Pulses Skin: Normal Color, Warm/Dry, Other (right leg much improved erythema and overall appearance) Neurologic/Psychiatric: Alert, Oriented x3, No Motor/Sensory Deficits, Normal Mood/Affect Hospital Course Hospital course: Patient had a standard in brief hospital course he was placed empirically on vancomycin and Zosyn with dramatic improvement in the right lower extremity cellulitis. Lotrisone placed on the leg with good results since there appeared to be tinea involvement when I first assessed. Ruled out recurrent DVT with ultrasound maintain INR above 2.0 the entire hospital course and restarted all home medication. I will see him in close follow-up he will keep the right leg elevated minimize wrapping and I will see him in the clinic for close follow-up and to complete po abx regimen. Labs (last 24 hrs) Microbiology 03/15/18 Blood Culture - Preliminary, Resulted No growth Patient resulted labs reviewed. Pending Labs Discussion & Recommendations Discharge Planning: <30 minutes discharge planning Discharge Home Medications: Active Scripts Active Doxycycline Hyclate 100 Mg Capsule 100 Mg PO BID Clotrimazole-Betamethasone Crm (Clotrimazole/Betamethasone Dip) 15 Gm Cream..g. 0 Gm TP BID Klor-Con 10 (Potassium Chloride) 10 Meq Tablet.er 10 Meq PO DAILY Metoprolol Succinate 100 Mg Tab.er.24h 100 Mg PO DAILY 30 Days Zyloprim (Allopurinol) 300 Mg Tablet 300 Mg PO DAILY Hydrochlorothiazide 25 Mg Tablet 25 Mg PO DAILY Coumadin (Warfarin Sodium) 5 Mg Tablet 5 Mg PO HS Reported Allopurinol 100 Mg Tablet 100 Mg PO HS PRN TAKES AN ADDITIONAL TABLET NEEDED FOR GOUT FLARE Lisinopril 2.5 Mg Tablet 5 Mg PO DAILY TAKES 2 (2.5MG) TABLETS Prednisolone Acet 1% Eye Drop (Prednisolone Acetate/Pf) 5 Ml Drops.susp 1 Drop OD BID Instructions to patient/family Please see electronic discharge instructions given to patient. Clinical Quality Measures DVT/VTE Risk/Contraindication: Risk Factor Score Per Nursin RFS Level Per Nursing on Admit: 4+=Very High JUAN DAVILA MED STUDENT 03/18/18 1006: Diagnosis/Chief Complaint Admission Diagnosis Right leg cellulitis Discharge Diagnosis Right leg cellulitis Discharge Summary Discharge Physical Exam Allergies: Coded Allergies: No Known Drug Allergies (Unverified , 07/13/11) General Appearance: No Apparent Distress, WD/WN, Obese Respiratory: Chest Non Tender, Lungs Clear, No Accessory Muscle Use Cardiovascular: Regular Rate, Rhythm, No Murmur, Normal Peripheral Pulses Extremity: Swelling (R leg) Skin: Normal Color, Rash (R leg) Neurologic/Psychiatric: Alert, Oriented x3, Normal Mood/Affect Hospital Course This is a 63 yo male with PMHx of DVTs who was admitted on 03/16/18 for right leg cellulitis. Pt was found to have complicated cellulitis and was placed on IV abx. Doppler u/s r/o DVT. Pt was responsive to abx and saw significant improvement in erythema/swelling every day. No complications. Pt will be d/carlotta in stable condition and will require a 7 day course of oral doxycycline. Problem Qualifiers (1) Hypertension: Hypertension type: essential hypertension Qualified Codes: I10 - Essential ( primary) hypertension (2) Gout: Gout site: unspecified site Gout etiology: unspecified cause Chronicity: unspecified Qualified Codes: M10.9 - Gout, unspecified MAGGIE LÓPEZ DO Mar 18, 2018 09:55 JUAN DAVILA MED STUDENT Mar 18, 2018 10:06
[2018-03-19] MEDS ORDERED: TROUGH ORDER-PHARMACY XX NR (06:00)
== END 2018-03-18 11:50 | disposition home or self-care (01) | DRG 603 ==
LOC: 4TH 17:40
PROVIDERS: ADMIT Internal Medicine; ATTEND Internal Medicine
DX: L03.115 Cellulitis of right lower limb (principal); L02.415 Cutaneous abscess of right lower limb; I89.0 Lymphedema, not elsewhere classified; I10 Essential (primary) hypertension; E78.00 Pure hypercholesterolemia, unspecified; M10.9 Gout, unspecified; L30.9 Dermatitis, unspecified; Z79.01 Long term (current) use of anticoagulants; Z87.891 Personal history of nicotine dependence; Z86.718 Personal history of other venous thrombosis and embolism
CPT/HCPCS: 36415; 80053; 80202; 83605; 85007; 85025; 85027; 85610; 87040

== ENCOUNTER 2019-06-09 11:00 | Emergency (ER) | payer OTHER ==
[~2019-06-09] VITALS: Ht 170 cm; Wt 90.0 kg
[~2019-06-09 11:00] MED LIST changes: +ALLO100T PO; +ALLO300T80 PO; +CLOT15CR6 TP; +DOXY100C2 PO; +HYDR25TA4 PO; +INDO25CA99 PO; +LISI2.5T PO; +MTP100TCR PO; +POTA10TA6 PO; +PRED5DRO24 OD; +WARF5TAB PO
[2019-06-09] MEDS ORDERED: fentaNYL INJECTION 100 MCG/2 ML AMP IVP STA (11:13)
[2019-06-09] MEDS ORDERED: LORazepam INJ 2 MG/ML (ATIVAN) VIAL IVP ONE (11:15)
[2019-06-09] MEDS ORDERED: LACTATED RINGERS 1,000 ML IV STA (11:15)
[2019-06-09 11:19] LABS: BASOPHILS # (AUTO) 0.1 10^3/uL (0.0-0.1); BASOPHILS % (AUTO) 1 % (0-10); EOSINOPHILS % (AUTO) 0 % (0-10); HEMATOCRIT 48 % (40-54); HEMOGLOBIN 16.2 G/DL (13.3-17.7); LYMPHOCYTES # (AUTO) 3.5 X 10^3 (1.0-4.0); LYMPHOCYTES % (AUTO) 39 % (12-44); MEAN CORPUSCULAR HEMOGLOBIN 31 PG (25-34); MEAN CORPUSCULAR HGB CONC 34 G/DL (32-36); MEAN CORPUSCULAR VOLUME 90 FL (80-99); MEAN PLATELET VOLUME 10.6 FL (7.4-10.4); MONOCYTES # (AUTO) 0.6 X 10^3 (0.0-1.0); MONOCYTES % (AUTO) 7 % (0-12); NEUTROPHILS # (AUTO) 4.8 X 10^3 (1.8-7.8); NEUTROPHILS % (AUTO) 53 % (42-75); PLATELET COUNT 271 10^3/uL (130-400); RED CELL DISTRIBUTION WIDTH 13.9 % (10.0-14.5); WHITE BLOOD COUNT 9.1 10^3/uL (4.3-11.0)
--- NOTE | 2019-06-09 11:27 | ED General ---
General Stated Complaint: L SHOULDER/NECK PAIN Source of Information: Patient Exam Limitations: No Limitations History of Present Illness Date Seen by Provider: Jun 09, 2019 Time Seen by Provider: 11:00 Initial Comments Here with report of left shoulder and arm pain that is causing spasms that appeared to be seizure-like. Does have history of seizures with pain. Apparently he was at the clinic this morning having the left shoulder evaluated that has been hurting for the last several weeks and months. He is in a Velcro wrist splint as they thought this may be related to carpal tunnel over the last couple weeks. Today he had these spasms in his shoulder that caused him to not be unable to talk. They stated that he was unresponsive at the clinic but is doing better now. Patient states he can hear during these events he just can't talk and it just causes severe spasms. He did have one of these events after arrival here where he had turning and spasm of the arm from the fingertips to the shoulder. Did have had turning and was not talking. He was tense throughout. Afterwards, he resolved fairly quickly and again states that he can hear through these but is unable to speak. states again that he used to have these about 20 years ago when he had severe pain problems. He had a but with the blood pressure cuff on the right arm with very similar appearance just the opposite side. Timing/Duration: 12-24 Hours, Intermittent, Other (worsening over the last 2 months.) Severity: Moderate Associated Systoms: No Chest Pain, No Cough, No Fever/Chills, No Nausea/Vomiting; Seizure (appears seizure-like with spasms that resolved rather quickly without significant postictal state); No Shortness of Air, No Weakness Allergies and Home Medications Allergies Coded Allergies: No Known Drug Allergies (Unverified , 07/13/11) Home Medications Allopurinol 300 Mg Tablet, 300 MG PO DAILY Prescribed by: ROMAN LOPEZ on 03/15/181900 Allopurinol 100 Mg Tablet, 100 MG PO HS PRN for GOUT FLARE, (Reported) TAKES AN ADDITIONAL TABLET NEEDED FOR GOUT FLARE Clotrimazole/Betamethasone Dip 15 Gm Cream..g., 0 GM TP BID Prescribed by: MAGGIE LÓPEZ on 03/18/18 0954 Doxycycline Hyclate 100 Mg Capsule, 100 MG PO BID Prescribed by: MAGGIE LÓPEZ on 03/18/18 0997 Hydrochlorothiazide 25 Mg Tablet, 25 MG PO DAILY Prescribed by: ROMAN LOPEZ on 03/15/181899 Lisinopril 2.5 Mg Tablet, 5 MG PO DAILY, (Reported) TAKES 2 (2.5MG) TABLETS Metoprolol Succinate 100 Mg Tab.er.24h, 100 MG PO DAILY Prescribed by: ROMAN LOPEZ on 03/15/181901 Potassium Chloride 10 Meq Tablet.er, 10 MEQ PO DAILY Prescribed by: ROMAN LOPEZ on 03/15/181906 Prednisolone Acetate/Pf 5 Ml Drops.susp, 1 DROP OD BID, (Reported) Warfarin Sodium 5 Mg Tablet, 5 MG PO HS Prescribed by: ROMAN LOPEZ on 03/15/181899 Patient Home Medication List Home Medication List Reviewed: Yes Review of Systems Review of Systems Constitutional: see HPI; No chills, No fever EENTM: no symptoms reported Respiratory: no symptoms reported Cardiovascular: no symptoms reported Gastrointestinal: No abdominal pain, No nausea, No vomiting Genitourinary: no symptoms reported Musculoskeletal: joint pain, muscle pain, muscle stiffness Psychiatric/Neurological: See HPI All Other Systems Reviewed Negative Unless Noted: Yes Past Hjhkyxs-Qviyos-Yfkmff Hx Past Med/Social Hx: Reviewed Nursing Past Med/Soc Hx Patient Social History Type Used: Cigarettes Former Smoker, Quit: Mar 15, 1982 Recent Hopitalizations: Yes Seasonal Allergies Seasonal Allergies: No Past Medical History Surgeries: Yes (LEFT EYE RETENOL DETACHED SURGERY AUGUST 2017, ING. HERNIA REPAIR) Vascular Surgery Respiratory: Yes Currently Using CPAP: No Currently Using BIPAP: No Deep Vein Thrombosis, High Cholesterol, Hypertension Neurological: Yes (CONCUSION YEARS AGO, LAST SEIZURE YEARS AGO) Genitourinary: No Gastrointestinal: Yes (INGINAL HERNIA) Musculoskeletal: Yes (BACK PAIN AT TIMES, FX ELBOW LONG TIME AGO) Fractures Endocrine: No Cataract Cancer: No Psychosocial: No Integumentary: Yes (right leg swelling from multiple DVT) Blood Disorders: Yes (DVT PROBLEMS ( PODDIBLE BLOOD DISORDER )) Family Medical History Reviewed Nursing Family Hx Cardiovascular disease 19 FATHER Cataracts (NO) 19 FATHER Colon cancer 19 FATHER FH: lupus G8 SISTER Hypertension Physical Exam Vital Signs Vital Signs - First Documented 06/09/19 11:00 Temp 37.0 Pulse 46 Resp 16 B/P (MAP) 165/93 (117) Pulse Ox 97 O2 Delivery Room Air Capillary Refill : Height, Weight, BMI Height: 5'10.00" Weight: 258lbs. 0.0oz. 117.947937bq; 37.0 BMI Method:Stated General Appearance: No Apparent Distress, WD/WN HEENT: PERRL/EOMI, Pharynx Normal Neck: Non Tender, Supple Respiratory: Lungs Clear, Normal Breath Sounds Cardiovascular: Regular Rate, Rhythm, No Murmur Gastrointestinal: Non Tender, Soft Back: Normal Inspection, No CVA Tenderness, No Vertebral Tenderness Extremity: Other (tender to the left shoulder and arm. Spasms occur with any significant impulse such as blood pressure cuffs to either arm.) Neurologic/Psychiatric: Alert, Oriented x3, Other (when spasm situation is encountered, he does have drawing and turning of the arm affected including the shoulder and torso. Head turns to spasm area and he does not speak. As spasm resolves then he is able to speak. Does have seizure-like appearance but unsure if this is underlying seizure or significant spasm and pain.) Skin: Normal Color, Warm/Dry Progress/Results/Core Measures Suspected Sepsis SIRS Temperature: Pulse: Respiratory Rate: Laboratory Tests 06/09/19 11:11: White Blood Count 9.1 Blood Pressure / Mean: Laboratory Tests 06/09/19 11:11: Creatinine 0.96, INR Comment 2.0H, Platelet Count 271, Total Bilirubin 0.8 Results/Orders Lab Results Laboratory Tests Test 06/09/19 11:11 Range/Units White Blood Count 9.1 4.3-11.0 10^3/uL Red Blood Count 5.32 4.35-5.85 10^6/uL Hemoglobin 16.2 13.3-17.7 G/DL Hematocrit 48 40-54 % Mean Corpuscular Volume 90 80-99 FL Mean Corpuscular Hemoglobin 31 25-34 PG Mean Corpuscular Hemoglobin Concent 34 32-36 G/DL Red Cell Distribution Width 13.9 10.0-14.5 % Platelet Count 271 130-400 10^3/uL Mean Platelet Volume 10.6 H 7.4-10.4 FL Neutrophils (%) (Auto) 53 42-75 % Lymphocytes (%) (Auto) 39 12-44 % Monocytes (%) (Auto) 7 0-12 % Eosinophils (%) (Auto) 0 0-10 % Basophils (%) (Auto) 1 0-10 % Neutrophils # (Auto) 4.8 1.8-7.8 X 10^3 Lymphocytes # (Auto) 3.5 1.0-4.0 X 10^3 Monocytes # (Auto) 0.6 0.0-1.0 X 10^3 Eosinophils # (Auto) 0.0 0.0-0.3 10^3/uL Basophils # (Auto) 0.1 0.0-0.1 10^3/uL Prothrombin Time 23.4 H 12.2-14.7 SEC INR Comment 2.0 H 0.8-1.4 Sodium Level 140 135-145 MMOL/L Potassium Level 4.2 3.6-5.0 MMOL/L Chloride Level 105 98-107 MMOL/L Carbon Dioxide Level 29 21-32 MMOL/L Anion Gap 6 5-14 MMOL/L Blood Urea Nitrogen 15 7-18 MG/DL Creatinine 0.96 0.60-1.30 MG/DL Estimat Glomerular Filtration Rate > 60 BUN/Creatinine Ratio 16 Glucose Level 94 70-105 MG/DL Calcium Level 9.9 8.5-10.1 MG/DL Corrected Calcium 9.7 8.5-10.1 MG/DL Magnesium Level 1.7 1.6-2.4 MG/DL Total Bilirubin 0.8 0.1-1.0 MG/DL Aspartate Amino Transf (AST/SGOT) 22 5-34 U/L Alanine Aminotransferase (ALT/SGPT) 27 0-55 U/L Alkaline Phosphatase 60 40-136 U/L Troponin I < 0.028 <0.028 NG/ML C-Reactive Protein High Sensitivity 0.57 H 0.00-0.50 MG/DL Total Protein 7.2 6.4-8.2 GM/DL Albumin 4.2 3.2-4.5 GM/DL TSH Barton Testing 1.22 0.35-4.94 UIU/ML My Orders Orders - ANGELA SANDERSON MD Cbc With Automated Diff (06/09/19 11:13) Comprehensive Metabolic Panel (06/09/19 11:13) Hs C Reactive Protein (06/09/19 11:13) Magnesium (06/09/19 11:13) Thyroid Analyzer (06/09/19 11:13) Troponin I (06/09/19 11:13) Ekg Tracing (06/09/19 11:13) Monitor-Rhythm Ecg Trace Only (06/09/19 11:13) Fentanyl Injection (Sublimaze Injection (06/09/19 11:13) Lorazepam Injection (Ativan Injection) (06/09/19 11:15) Lactated Ringers (Lr 1000 Ml Iv Solution (06/09/19 11:15) Protime With Inr (06/09/19 12:03) Levetiracetam Tablet (Keppra Tablet) (06/09/19 12:45) Medications Given in ED Current Medications Medications Dose Ordered Sig/Yareli Route Start Time Stop Time Status Last Admin Dose Admin Levetiracetam 500 mg ONCE ONCE PO 06/09/19 12:45 06/09/19 12:46 06/09/19 12:45 500 MG Lorazepam 0.5 mg ONCE ONCE IVP 06/09/19 11:15 06/09/19 11:16 DC 06/09/19 11:20 0.5 MG Vital Signs/I&O 06/09/19 11:00 Temp 37.0 Pulse 46 Resp 16 B/P (MAP) 165/93 (117) Pulse Ox 97 O2 Delivery Room Air Capillary Refill : Progress Note : Progress Note Seen and evaluated. IV by EMS. Labs and EKG ordered. LR 1 L bolus. Fentanyl 50 g IV for pain and Ativan 0.5 mg IV for spasm. Monitor patient. 1245: Overall doing much better. I have discussed the case with Dr. López. We will initiate Keppra 500 mg by mouth now and continue that twice a day. Write for small dose of pain medicine and have discussed [id number] pain medicine control as wyatt hammer. He is therapeutic with respect to his INR. We will give sling for the left arm to reduce pain as well. Dr. López will see him in office tomorrow at 1 PM. Discharged home with return precautions. Patient and verbalize understanding instructions and agreement with plan. ECG Initial ECG Impression Date: Jun 09, 2019 Initial ECG Impression Time: 11:13 Initial ECG Rate: 42 Initial ECG Rhythm: S.Nadeem Comment Sinus bradycardia with interventricular conduction delay. Left ventricular hypertrophy noted. Leftward axis. No evidence of ST elevation MS. Vital sign history review shows patient does have multiple recorded pulses in the 50s and a few 40s so bradycardia may not be new. Interpreted by me. Departure Impression Primary Impression: Left shoulder pain Qualified Codes: M25.512 - Pain in left shoulder Additional Impression: Focal and partial seizures Disposition: 01 HOME, SELF-CARE Condition: Improved Departure-Patient Inst. Decision time for Depature: 12:47 Referrals: MAGGIE LÓPEZ DO (PCP/Family) Primary Care Physician Patient Instructions: Seizures, Adult (DC), Shoulder Pain (DC) Add. Discharge Instructions: Take medications as directed. Follow-up with Dr. López tomorrow at 1 PM at her office here in [place] for recheck and further evaluation. This appointment has been made. Use sling to reduce pain to the shoulder and you may use ice packs to the shoulder as needed. Do not drive or engage in activities that increase her risk for injury for 4 injury to others (example climbing to heights, taking a bath or swimming, etc.). Return for worse pain, fever, vomiting, weakness, breathing problems or other concerns as needed. You may take Tylenol/acetaminophen 2 tablets every 8 hours as needed for pain. Only take one tablet if you have taken the prescribed pain medicine as they both have Tylenol/acetaminophen in them. Do not exceed 4000 mg of acetaminophen in 24 hours. Scripts Hydrocodone/Acetaminophen (Hydrocodone/Acetaminophen 5 MG/325 MG TAB) 1 Each Tablet 1 TAB PO Q6H for Pain MDD 10 TABS for 3 Days, #10 TAB 0 Refills Prov: ANGELA SANDERSON MD 06/09/19 Levetiracetam (Keppra) 500 Mg Tablet 500 MG PO BID for 30 Days, #60 TAB 0 Refills Prov: ANGELA SANDERSON MD 06/09/19 Copy Copies To 1: MAGGIE LÓPEZ TIMOTHY D MD Jun 09, 2019 11:27
[2019-06-09 11:39] LABS: ALANINE AMINOTRANSFERASE 27 U/L (0-55); ALBUMIN 4.2 GM/DL (3.2-4.5); ALKALINE PHOSPHATASE 60 U/L (40-136); BILIRUBIN,TOTAL 0.8 MG/DL (0.1-1.0); BUN/CREATININE RATIO 16; CALCIUM 9.9 MG/DL (8.5-10.1); CARBON DIOXIDE 29 MMOL/L (21-32); CHLORIDE 105 MMOL/L (98-107); CREATININE SERUM 0.96 MG/DL (0.60-1.30); GFR ESTIMATED > 60; GLUCOSE 94 MG/DL (70-105); MAGNESIUM 1.7 MG/DL (1.6-2.4); POTASSIUM 4.2 MMOL/L (3.6-5.0); SODIUM 140 MMOL/L (135-145); TOTAL PROTEIN 7.2 GM/DL (6.4-8.2)
[2019-06-09 11:59] LABS: TSH (THYROID ANALYZER) 1.22 UIU/ML (0.35-4.94)
--- NOTE | 2019-06-09 12:00 | NUR ---
PT STATES HIS PAIN IS BETTER BECAUSE HE IS NOT JERKING.
--- NOTE | 2019-06-09 12:11 | NUR ---
IN TALKING TO PT AT THIS TIME.
[2019-06-09 12:15] LABS: PROTHROMBIN TIME PATIENT 23.4 SEC (12.2-14.7)
--- NOTE | 2019-06-09 12:33 | NUR ---
IN TALKING TO PT AT THIS TIME.
[2019-06-09] MEDS ORDERED: LEVETIRACETAM 500 MG (KEPPRA) TAB PO ONE (12:45)
[2019-06-09] MEDS ORDERED: HYDR-4226 PO (12:50)
[2019-06-09] MEDS ORDERED: LEVE500T99 PO (12:50)
[2019-06-09 12:59] VITALS: BP 135/86
--- OUTSIDE RECORDS SUMMARY | 2019-06-11 09:02 | XMS REPORT | Encounter Summary ---
Author Author [facility] Address Unknown Phone Unavailable Care Team Providers Care Primary Class Teacher Name Role Phone LebronNoemy finnegan PCP Reason for Visit * Auth/Cert Referred By Contact Referred To Contact Status Reason Specialty Diagnoses / Procedures Diagnoses RETINAL DETACHMENT H33.001 P rocedures [place] REPAIR RETINAL DETACHMENT SCLERAL BUCKLING [place] REPAIR RETINAL DETACHMENT SCLERAL BUCKLING SCLEARL BUCKLE, CRYOPEXY, DRAINAGE OF SUBRETINAL FLUID Encounter Details Care Team Description Date Type Department Anthony Davies MD [address] [place], [place] [id number] Antonio Colbert MD [address] [place] [address] [phone] 08/28/2017 Anesthesia [facility] al Event [address] [place] [address] Anesthesia Record Responsible Anesthesiologist Anesthesia Start Time Anesthesi a Stop Time Procedure Name Anthony Davies MD 08/28/17 1056 08/28/17 1414 RIGHT SCLEARL BUCKLE, CRYOPEXY, DRAINAGE OF SUBRETINAL FLUID, INDIRECT LASER OF LEFT EYE (N/A ) Date Time Event Comment 939 1056 AN Equip Check 1056 In room 1056 An Start 1056 An Start Data 1056 Pt eval immediately prior to anesthesia 1100 Preoxygenated Prior to Induction 1103 An Induction 1105 An Intubation 1106 RSI/Cricoid 1107 Anesthesia Ready 1130 Procedure start - Primary Case 1334 Anesthesiologis t Present 1351 Procedure stop - Primary case 1351 Spontaneous respirations 1353 Adequate Tidal Volume 1353 FiO2 to 100% Prior to Suctioning 1356 Suction 1400 An Extubation 1402 Oxygen per nasal cannula 1402 an stop data 1403 Transported with O2 1403 Out of Room 1414 Handoff I completed my SBAR handoff to the receiving nurse in the PACU. 1414 An Stop Meds Name Total lidocaine 2% (PF) 100 mg propofol 10mg/mL 150 mg rocuronium 10mg/mL 60 mg fentaNYL (SUBLIMAZE) injection 50 mcg/mL 100 mcg phenylepherine 0.1mg/mL 100 mcg glycopyrrolate 0.2mg/mL 0.4 mg neostigmine (BLOXIVERZ) injection 1 2 mg mg/mL ceFAZolin (ANCEF) injection 1 g 2 g ketorolac 30mg/mL 30 mg lactated ringers infusion 1,300 mL * Name Cell Saver Blood Intake O2 N2O Air EtSEVO EtISO EtDES EtN2O * No blood administrations on file. Removal Type Details Placement 08/29/17 1215 by Mita Harrison RN Peripheral Date: 08/28/17; Time: 0853; Size 08/28 0853 by Celestino IV (gauge): 20 G; Orientation: Right; Anya stephens RN Location: Hand; Site Prep: Chlorhexidine; Local Anesthetic: Intradermal; Insertion Attempts: 1; Removal Date: 08/29/17; Removal Time: 1215 08/28/17 1400 by REESE Foss Non-Surgic Date: 08/28/17; Time: 1105; Able to mas k 08/28/17 1105 by Romeo brady Airway ventilate prior to placement: Yes; REESE Johnston Placed By: Toolroom Attendant; Site: Oral; Device: ETT - Cuffed; Size: 7.5; Units: Millimeters; Method: Laryngoscope; Blad e Type: MAC; Blade Size: 4; Attempts: 1 (w/ dental guard); Grade View: I; Misc: External Laryngeal Manipulation; Airway Observations: oropharynx clear, arytenoids visualized, cords visualized ; Cuff Volume: 9; Secured At (cm): 23; Measured From: Lips; Removal Date: 08/28/17; Removal Time: 1400 10/17/18 0836 by User Epicbatch (Retired 08/28/17; 1135; Eye; Right; tobradex 08/28/17 1135 by Michelle Stephens 04/21/18; ointment; 10/17/18 (This LDA has been CARMEN Sprague search removed & completed via aut omated "wound" if utility); 0836 (This LDA askew s been placing removed & completed via aut omated new) utility) Wound - Incision Assessment 08/28/17 1418 by Michelle Sprague RN (Retired 08/28/17; 1135; Eye; Left; tobradex 0 08/28/17 1135 by Michelle Stephens 04/21/18; ointment; 08/28/17; 1418 CARMEN Sprague search "wound" if placing new) Wound - Incision Assessment documented in this encounter Social History Date Tobacco Use Types Packs/Day Years Used Former Smoker Smokeless Tobacco: Never Used Drinks/Week oz/Week Comments Alcohol Use No Sex Assigned at Date Recorded Not on file Industry Job Start Date Occupation Not on file Not on file Not on file Travel End Travel History Travel Start No recent travel history available. documented as of this encounter Miscellaneous Notes * Anesthesia Postprocedure Evaluation - Quang Perze DO - 08/28/2017 2:58 PM CDT Anesthesia Post Evaluation Patient Evaluated in: PACU Patient Participation: complete - patient participated Level of Consciousness: awake and alert Pain Management: adequate Airway Patency: patent Respiratory Status: spontaneous ventilation Cardiovascular Status: hemodynamically stable Postoperative Hydration: euvolemic Anesthetic Complications: No Appropriate for discharge from anesthesia care, no apparent anesthesia related c omplication ANE Post Eval Vitals Most Recent Value BP 135/77 filed at 08/28/2017 1443 Pulse 55 filed at 08/28/2017 1443 Temp 36.8 C (98.2 F) filed at 08/28/2017 1413 Resp 20 filed at 08/28/2017 1443 SpO2 96 % filed at 08/28/2017 1443 * Anesthesia Preprocedure Evaluation - Anthony Davies MD - 08/28/2017 9:38 AM CDT Relevant Problems No active problems are marked relevant to this note. Anesthesia Evaluation Patient summary reviewed No history of anesthetic complications Airway Mallampati: II TM distance: >3 FB Neck ROM: full Adequate mouth opening Dental Pulmonary - negative ROS Lung sounds: normal (+) Cardiovascular Exercise tolerance: good Heart sounds: normal (+) hypertension, Neuro/Psych (+) seizures well controlled, GI/Hepatic/Renal - negative ROS Endo/Other Comments: H/O Gout Abdominal Obstetrics HEENT Musculoskeletal Negative musculoskeletal ROS Anesthesia Plan ASA 2 Type: general () Plan to include: ETT and IV induction Patient was taking beta blockers as a home medication. Beta kristen will be kasey ntained perioperatively. Anesthetic plan and risks discussed with patient. Plan discussed with anesthesiologist assistant professor nurse education. Post-operative analgesia: routine analgesia and antiemetics Recovery plan: PACU PONV risk level: low documented in this encounter Plan of Treatment Not on filedocumented as of this encounter Visit Diagnoses Not on filedocumented in this encounter Administered Medications Action Date Dose Rate Site Medication Order MAR Action 08/28/2017 11:19 AM CDT 2 g ceFAZolin (ANCEF) injection Given As needed, Starting Thu08/28/17 at 1119, Anesthesia Intra-op 08/28/2017 1:56 PM CDT 25 mcg fentaNYL (SUBLIMAZE) injection Given As needed, Starting Thu08/28/17 at 1059, Anesthesia Intra-op 75 mcg Given 08/28/2017 10:59 AM CDT 08/28/2017 1:51 PM CDT 0.3 mg glycopyrrolate (ROBINUL) injection Given As needed, secretions, Starting Thu08/28/17 at 1118, Anesthesia Intra-op 0.1 mg Given 08/28/2017 11:18 AM CDT 08/28/2017 1:33 PM CDT 30 mg ketorolac (TORADOL) injection Given As needed, moderate pain (pain score 4-6), Starting Thu08/28/17 at 1333, Anesthesia Intra-op 08/28/2017 11:27 AM CDT lactated ringers infusion New Bag 50 mL/hr, Intravenous, Continuous, Starting Thu08/28/17 at 1000 50 mL/hr 50 mL/hr New Bag 08/28/2017 9:43 AM CDT 08/28/2017 11:03 AM CDT 100 mg lidocaine (pf) (XYLOCAINE-MPF) 20 mg/mL Given (2 %) injection As needed, Starting Thu08/28/17 at 1103, Anesthesia Intra-op 08/28/2017 1:51 PM CDT 2 mg neostigmine (BLOXIVERZ) injection Given Intravenous, As needed, Starting Thu08/28/17 at 1351, Anesthesia Intra-op 08/28/2017 11:29 AM CDT 100 mcg phenylephrine HCl in 0.9% NaCl Given (NEOSYNEPHRINE) 1 mg/10 mL (100 mcg/mL) injection As needed, Starting Thu08/28/17 at 1129, Anesthesia Intra-op 08/28/2017 11:03 AM CDT 150 mg propofol (DIPRIVAN) injection Given As needed, Starting Thu08/28/17 at 1103, Anesthesia Intra-op 08/28/2017 11:19 AM CDT 10 mg rocuronium (ZEMURON) injection Given As needed, Starting Thu08/28/17 at 1103, Anesthesia Intra-op 50 mg Given 08/28/2017 11:03 AM CDT documented in this encounter
--- OUTSIDE RECORDS SUMMARY | 2019-06-11 09:02 | XMS REPORT | Encounter Summary ---
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 Name Role Phone LebronNoemy PCP Reason for Visit * Auth/Cert Referred By Contact Referred To Contact Status Reason Specialty Diagnoses / Procedures Diagnoses RETINAL DETACHMENT H33.001 P rocedures NM REPAIR RETINAL DETACHMENT SCLERAL BUCKLING NM REPAIR RETINAL DETACHMENT SCLERAL BUCKLING SCLEARL BUCKLE, CRYOPEXY, DRAINAGE OF SUBRETINAL FLUID Encounter Details Care Team Description [place] [address] [address] RIGHT SCLEARL BUCKLE, CRYOPEXY, DRAINAGE OF SUBRETINAL FLUID, INDIRECT LASER OF LEFT EYE 08/28/[address] [address] Social History Date Tobacco Use Types Packs/Day Years Used Former Smoker Smokeless Tobacco: Never Used Drinks/Week oz/Week Comments Alcohol Use No Sex Assigned at Date Recorded Not on file Industry Job Start Date Occupation Not on file Not on file Not on file Travel End Travel History Travel Start No recent travel history available. documented as of this encounter Last Filed Vital Signs Reading Time Taken Comments Vital Sign 116/62 08/29/2017 11:44 AM CDT Blood Pressure 55 08/29/2017 11:44 AM CDT Pulse 37.1 C (98.8 F) 08/29/2017 11:44 AM CDT Temperature 16 08/29/2017 11:44 AM CDT Respiratory Rate 93% 08/29/2017 11:44 AM CDT Oxygen Saturation - - Inhaled Oxygen Concentration 112 kg (247 lb) 08/28/2017 8:36 AM CDT Weight 177.8 cm (5' 10") 08/28/2017 8:29 PM CDT Height 35.44 08/28/2017 8:36 AM CDT Body Mass Index documented in this encounter Discharge Summaries * Antonio Colbert MD - 08/29/2017 9:56 AM CDT [facility] DISCHARGE NOTE Patient: Mariola Gaxiola : 1955 Age: 62 y.o. SUBJECTIVE: Patient comfortable. EXAM: Vital signs stable, afebrile IOP: 19 mm Hg Lids: 3+ Edema OD, 1+ Blepharoptosis OS Conjunctiva: 2+ Chemosis and 4+ Injection OD Cornea: Clear OU Anterior Chamber: Formed OU Lens: 2+ Nuclear Sclerosis OU Media: Clear OU Optic Nerve - Cup-to-disc: 0.2 OU Macula: Flat OU Peripheral Retina: Retina attached OU, Good buckle effect with ear ly cryo reaction OD. Early laser reaction OS. 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 PLAN: Discharge and follow as an outpatient. Electronically signed by: Antonio Colbert 08/29/2017 9:56 AM documented in this encounter Discharge Instructions * Pre-Procedure Instructions* Jennifer Knox RN - 08/26/2017 4:23 PM CDT Current Outpatient Prescriptions Medication Sig Note: allopurinol (ZYLOPRIM) 100 MG tablet Take 100 mg by mouth daily. Note:Contin ue as directed. hydroCHLOROthiazide (HYDRODIURIL) 25 MG tablet Take 25 mg by mouth daily. No te:HOLD day of surgery. lisinopril (PRINIVIL,ZESTRIL) 2.5 MG tablet Take 5 mg by mouth daily. Note:H OLD day of surgery. metoprolol tartrate (LOPRESSOR) 100 MG tablet Take 100 mg by mouth daily. No te:TAKE day of surgery. warfarin (COUMADIN) 5 MG tablet Take 5 mg by mouth every evening. Note:HOLD until after surgery. documented in this encounter Medications at Time of Discharge Start Date End Date Medication Sig Dispensed Refills allopurinol (ZYLOPRIM) Take 100 mg 0 100 MG tablet by mouth daily. enoxaparin (LOVENOX) 100 Inject 100 mg 0 mg/mL Syrg under the skin every 12 (twelve) hours. 08/29/2017 homatropine (ISOPTO Instill 1 15 mL 0 HOMATROPINE) 5 % drop into the ophthalmic solution right eye 2 (two) times a day. hydroCHLOROthiazide Take 25 mg by 0 (HYDRODIURIL) 25 MG mouth daily. tablet lisinopril Take 5 mg by 0 (PRINIVIL,ZESTRIL) 2.5 MG mouth daily. tablet metoprolol tartrate Take 100 mg 0 (LOPRESSOR) 100 MG tablet by mouth daily. 08/29/2017 ofloxacin (OCUFLOX) 0.3 % Instill 1 5 mL 0 ophthalmic solution drop into the right eye 4 (four) times a day. 08/29/2017 prednisoLONE acetate Instill 1 5 mL 0 (PRED FORTE) 1 % drop into the ophthalmic suspension right eye 4 (four) times a day. warfarin (COUMADIN) 5 MG Take 5 mg by 0 tablet mouth every evening. documented as of this encounter H&P Notes * Antonio Colbert MD - 08/26/2017 4:58 PM CDT [facility] History & Physical Date: 08/26/2017 PCP: No primary care provider on file. HPI: Retinal detachment OD, lattice degeneration OS Past Medical History: Past Medical History: Diagnosis Date Deep vein thrombosis (HCC) Gout Hypertension Retinal disorder Seizures (HCC) Past Surgical History: Past Surgical History: Procedure Laterality Date EYE SURGERY 08/28/2017 HERNIA REPAIR Left 2014 VASCULAR SURGERY Right 2017 leg due to clot Social History: Social History Social History Marital status: N/A Spouse name: N/A Number of children: N/A Years of education: N/A Occupational History Not on file. Social History Main Topics Smoking status: Former Smoker Smokeless tobacco: Never Used Alcohol use No Drug use: No Sexual activity: Not on file Other Topics Concern Not on file Social History Narrative No narrative on file Family History: History reviewed. No pertinent family history. No Known Allergies Medications: No current facility-administered medications for this encounter. Current Outpatient Prescriptions Medication Sig Dispense Refill allopurinol (ZYLOPRIM) 100 MG tablet Take 100 mg by mouth daily. hydroCHLOROthiazide (HYDRODIURIL) 25 MG tablet Take 25 mg by mouth daily. lisinopril (PRINIVIL,ZESTRIL) 2.5 MG tablet Take 5 mg by mouth daily. metoprolol tartrate (LOPRESSOR) 100 MG tablet Take 100 mg by mouth daily. warfarin (COUMADIN) 5 MG tablet Take 5 mg by mouth every evening. OCULAR EXAMINATION: VISUAL ACUITY: with correction OD: CF @ 2' OS: 20/25 APPLANATION TONOMETRY: OD: 9 mmHg OS: 11 mmHg LIDS: ? 1+ blepharoptosis OU SLIT-LAMP BIOMICROSCOPY: ? Conjunctiva/Sclera o Nasal and temporal pinguecula, 1+ injection OU ? Cornea o Clear OU o Peripheral arcus senilis 1+ OU ? Anterior Chamber o Deep and quiet OU ? Iris o Normal contours and configurations OU ? Lens o 2-3+ nuclear sclerosis, 1-2+ PSC OD o 2+ nuclear sclerosis, 2+ PSC OS ? Anterior Vitreous o 1+ strand OU FUNDUS BIOMICROSCOPY: ? Optic Nerve o Cup-to-disc ratio of 0.2 OD o Cup-to-disc ratio of 0.25 OS ? Vascular o Normal OU ? Macula o Macular involved retinal detachment OD o Dry OS ? Periphery o Inferior temporal retinal detachment from 5:00-9:30 and break at 8:00 OD o Lattice degeneration superiorly Impressions: Active Hospital Problems Diagnosis *Recent partial retinal detachment, right Lattice degeneration of peripheral retina, left Plan: Mr. Gaxiola will proceed with a scleral buckle and cryopexy with drainage of subre tinal fluid OD and indirect laser OS under general anesthesia. Electronically signed by Antonio Colbert 08/26/2017 4:58 PM documented in this encounter Nursing Notes * Molly Colunga RN - 08/28/2017 2:26 PM CDT Oral airway removed by patient at this time. Patient following commands. Patient instructed to take deep breaths. Vitals stable. * Molly Colunga RN - 08/28/2017 2:07 PM CDT Patient arrives to pacu with oral airway in place. documented in this encounter Miscellaneous Notes * Operative Note - Antonio Colbert MD - 09/20/2017 1:44 PM CDT Name: MARIOLA GAXIOLA MRN: Date of : 1955 Attending Physician: Antonio Colbert MD Date of Procedure: 08/28/2017 PREOPERATIVE DIAGNOSES: 1. Retinal detachment, right eye. 2. Lattice degeneration, peripheral retina, bilateral. 3. Retinal edema, right eye. PROCEDURES: 1. Scleral buckle. 2. Retinal cryopexy. 3. Drainage of subretinal fluid, right eye. 4. Indirect ophthalmoscopic laser photocoagulation, left eye. SURGEON: Antonio Colbert MD. ANESTHESIA: General endotracheal. COMPLICATIONS: None. OPERATIVE PROCEDURE IN DETAIL: After obtaining the proper informed consent, the patient was premedicated and was transported to the operating room. The patien t was placed in the supine position. With the appropriate cardiac monitoring an d intravenous lines, a general endotracheal anesthetic was induced by the [facility] of anesthesia without complication. The patient was then prepped and drape d in the usual sterile fashion for vitreoretinal surgery. Alessandro lid speculums w ere inserted OD, and with loop magnification, a 360-degree conjunctival peritomy was created with Pamella scissors and blunt and sharp dissection. Blunt disse ction in each of the 4 oblique quadrants was carried out with Boyd tenotomy s cissors. Relaxing incisions were created in the inferior temporal and superior nasal quadrants. Relaxing incisions were marked with 6-0 silk suture. Oli muscle hooks were then used to identify the horizontal and vertical recti muscle s. 2-0 silk sutures were passed beneath the muscles with Clement muscle hooks for traction purposes. Careful inspection of the globe demonstrated healthy sclera. Indirect ophthalmoscopy was then used to identify the retinal breaks and the e xtent the retinal detachment. Breaks were localized and retinal cryopexy was de livered to the zones of the retinal detachment and the retinal tears. Good upta ke was experienced. Following completion of cryopexy, loop magnification was th en used, and a #240 silicone band was passed beneath the recti muscles and was t ied in the inferior nasal quadrant. 5-0 Vicryl mattress sutures were positioned from the 5 o'clock to the 11 o'clock meridian with a total of 5 sutures being p ositioned equatorially. A #516G sponge of the Lincoff design was then positione d from the 5 o'clock to the 11 o'clock meridian beneath the preplaced mattress s utures and the encircling element. An anchor suture was positioned in the super ior nasal quadrant equatorially about the encircling band. The mattress sutures were tightened and tied in temporary fashion. Indirect ophthalmoscopy showed a significant residual subretinal fluid. Therefore, drainage of subretinal fluid was indicated. A 25-gauge needle on an open tuberculin syringe was injected vi a indirect ophthalmoscopic guidance into the subretinal space. A slow controlle d drainage of subretinal fluid was obtained. The retina flattened on the sclera l buckle with good position of retinal tears. The encircling element was tighte lisa and the mattress sutures were tightened and tied in permanent position. Ind irect ophthalmoscopy showed an attached retina flat on the scleral buckle. Sawyer y cryopexy reaction was present to the region of the tears as well as to lattice degeneration and retinal holes on attached retina. The optic nerve had good pe rfusion. The anchor suture was tightened and tied in permanent position and the buckle ends were trimmed. Gelfoam was inserted beneath the recti muscles and t he eye was cultured and copiously irrigated with Garamycin and Neosporin ophthal mohan solutions. The traction and marking sutures were removed and the conjunctiv a was reapproximated and sutured with 7-0 Vicryl suture material. Depo-Medrol 4 0 mg per mL was injected in the subconjunctival space. At completion of procedu re, the eye was patched with topical TobraDex ointment. The drapes were removed . Attention was directed to the left eye. A Barraquer lid speculum was inserted a nd with the indirect ophthalmoscopic laser, a total of 290 applications were del ivered to zones of lattice degeneration with atrophic holes. Good retinal uptak e was noted. At completion of laser, the lid speculum was removed and TobraDex ointment was instilled in the conjunctival cul-de-sac. The anesthetic agent was reversed without difficulty. The patient was extubated and was transported to the recovery room in good condition. Antonio Colbert MD, FACS [id number] CC: * Plan of Care - Irish Gasca RN - 08/28/2017 9:30 PM CDT Problem: Pain Goal: Patient's pain/discomfort is manageable Outcome: Progressing Patient complain of right eye discomfort when inserting the eye drops. Discussed using a small ice pack prn as needed. Ice pack provided for patient. Will margarita nue to monitor through out the shift. Encourage patient to call for pain medicat ion when needed. Problem: Safety Goal: Patient will be injury free during hospitalization Outcome: Progressing Discussed safety precaution and fall protocol with patient and his . Informe d them both that patient was Consider a fall risk due to having eye surgery. 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 They both agreed and wi ll follow directions. Continue with plan of care. * Plan of Care - Laura Brown RN - 08/28/2017 6:40 PM CDT Problem: Knowledge Deficit Goal: Patient/family/caregiver demonstrates understanding of disease process, tr eatment plan, medications, and discharge instructions Complete learning assessment and assess knowledge base. Outcome: Progressing Goal: Patient/Family/Caregiver sets realistic goals Outcome: Progressing Problem: Pain Goal: Patient's pain/discomfort is manageable Outcome: Progressing Problem: Skin Integrity Goal: Skin integrity is maintained or improved Assess and monitor skin integrity. Identify patients at risk for skin breakdown on admission and per policy. Collaborate with interdisciplinary team and initiat e plans and interventions as needed. Outcome: Progressing Problem: Safety Goal: Patient will be injury free during hospitalization Outcome: Progressing Problem: Nutrition Goal: Patient's nutritional intake is adequate Outcome: Progressing Problem: Risk for Falls Goal: Patient will not fall during their Inpatient stay Outcome: Progressing Problem: Potential for Compromised Skin Integrity Goal: Skin integrity is maintained or improved Assess and monitor skin integrity. Identify patients at risk for skin breakdown on admission and per policy. Collaborate with interdisciplinary team and initiat e plans and interventions as needed. 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] * Retinal edema of right eye [H35.81] RIGHT SCLEARL BUCKLE, CRYOPEXY, DRAINAGE OF SUBRETINAL FLUID, INDIRECT LASER OF LEFT EYE, N/A Surgeon(s) and Role: * Antonio Colbert MD - Primary Anesthesia Type: General Staff: Element Winding Machine Tender: Michelle Sprague RN Relief Element Winding Machine Tender: Esthela Rossi RN Relief Scrub: Meme Monroe Scrub Person: Jeremias Guan; Johanna Anderson Private Scrub: Avis Yusuf RN Float: Esthela Rossi RN Anesthesiologist: Anthony Davies MD Anesthesiologist Mandrel Maker: REESE Foss Findings: Retinal detachment 5:00-11:00, 5 mattress sutures SN anchor suture #240 band and 516-G sponge OD, indirect laser #290 OS Estimated Blood Loss: Minimal Specimens: . ID Source Type Tests Collected By Collected At A Right Eye Culture CULTURE, ANAEROBE CULTURE, EYE Antonio Colbert MD 08/28/17 1316 Description: Right Eye/Orbit, [id number], [id number] Comment: Pre-op diagnosis: RETINAL DETACHMENT H33.001 Implants: Implant Name Type Inv. Item Serial No. Puddler Pile Driving Lot No. LRB No. Used Action IMPLANT EYE RETINAL SPONGE GROOVED 2.3MM X 6.4MM STYLE 516G 92-50-6.4 - [id number] Non-Tissue Implant IMPLANT EYE RETINAL SPONGE GROOVED 2.3MM X 6.4MM STYLE 516 G 92-50-6.4 [facility] OPHTHALMIC [id number] Right 1 Implanted IMPLANT EYE SCLERAL BUCKLE BAND SILICONE STYLE 240 2.5 92-02 - [id number] Non-Ti ssue Implant IMPLANT EYE SCLERAL BUCKLE BAND SILICONE STYLE 240 2.5 92-02 [facility] OPHTHALMIC [id number] Right 1 Implanted Complications: None Antonio Colbert M.D., FACS Date: 08/28/2017 Time: 1:56 PM documented in this encounter Plan of Treatment Not on filedocumented as of this encounter Procedures Comments Procedure Name Priority Date/Time Associated Diag nosis CULTURE, EYE Timed 08/28/2017 1:16 PM CDT CULTURE, ANAEROBE Timed 08/28/2017 1:16 PM CDT SCLERAL BUCKLING, WITH 08/28/2017 Macula-off rhe gmatogenous RETINAL CRYOPEXY 10:56 AM CDT retinal detachment, right Lattice degeneration of peripheral retina, bilateral Retinal edema of right eye CLOTTING SCREEN STAT 08/28/2017 8:29 AM CDT COMPLETE BLOOD COUNT STAT 08/28/2017 8:29 AM CDT BASIC METABOLIC PANEL STAT 08/28/2017 8:29 AM CDT documented in this encounter Results * Culture, Eye (08/28/2017 1:16 PM CDT) Culture Result No growth at 2 weeks [facility] Specimen Culture - Right Eye Performing Organization Address City/State/Zipcode Ph one Number [address] [address] LABORATORIES * Culture, Anaerobe (08/28/2017 1:16 PM CDT) Isolate 1 Few (A) [facility] Isolate 1 Cutibacterium acnes (formerly [facility] Propionibacter[facility]) (A) [facility] Isolate 1 No susceptibility testing done [facility] on this isolate (A) [facility] Specimen Culture - Right Eye Performing Organization Address [facility] one Number [address] [address] LABORATORIES * Complete Blood Count (08/28/2017 8:29 AM CDT) Pathologist [facility] WBC 10.60 4.00 - 11.00 TH/uL [facility] RBC 5.54 4.31 - 5.84 MIL/uL [facility] Hemoglobin 16.6 13.0 - 17.0 g/dL [facility] Hematocrit 49 40 - 50 % [facility] MCV 89 80 - 99 fL [facility] MCH 30 27 - 34 pg [facility] MCHC 34 32 - 36 % [facility] RDW 13.6 9.0 - 14.5 % [facility] Platelet Count 301 140 - 400 TH/uL [facility] MPV 10.7 9.4 - 12.3 fL [facility] Nucleated RBCs 0 0 - 0 /100 [facility] Specimen Blood Performing Organization Address [facility] one Number [address] [address] LABORATORIES * Basic Metabolic Panel (08/28/2017 8:29 AM CDT) Pathologist [facility] Sodium 142 133 - 147 MEQ/L [facility] Potassium 4.2 3.5 - 5.3 MEQ/L [facility] Chloride 104 96 - 112 MEQ/L [facility] Carbon Dioxide 25 20 - 32 MEQ/L [facility] Anion Gap 13 5 - 17 [facility] Calcium 9.9 8.4 - 10.5 mg/dL [facility] Glucose 96 70 - 100 mg/dL [facility] Blood Urea 21 7 - 26 mg/dL [facility] LAB[facility]ATORIES Creatinine 0.8 0.6 - 1.3 mg/dL [facility] eGFR Male AA 119 60 - 200 [facility] Comment: REGIONAL Chronic Kidney Disease less LABORATORIES than 60 mL/min/1.73 sq.m Kidney failure less than 15 mL/min/1.73 sq.m eGFR Male 98 60 - 200 [facility] Non-AA Comment: REGIONAL Chronic Kidney Disease less LABORATORIES than 60 mL/min/1.73 sq.m Kidney failure less than 15 mL/min/1.73 sq.m Specimen Blood Performing Organization Address [facility] one Number [address] [address] LABORATORIES * Clotting Screen (08/28/2017 8:29 AM CDT) Protime 22.1 (H) 11.4 - 15.0 sec [facility] INR 1.9 (H) 0.8 - 1.2 [facility] APTT 43 (H) 22 - 34 sec [facility] Specimen Blood Performing Organization Address City/[facility] one Number [address] [address] LABORATORIES documented in this encounter Visit Diagnoses Diagnosis Macula-off rhegmatogenous retinal detac hment, right Lattice degeneration of peripheral reti na, bilateral Lattice degeneration of peripheral reti na Retinal edema of right eye documented in this encounter Administered Medications Action Date Dose Rate Site Medication Order MAR Action 08/28/2017 9:44 AM CDT 1,000 mg acetaminophen (TYLENOL) tablet 1,000 mg Given 1,000 mg, Oral, Once, Thu08/28/17 at 1000, For 1 dose, Pre-op, Do not exceed 4 GM/DAY of acetaminophen. If 65 or older do not exceed 3 GM/DAY. If chroni c alcoholic do not exceed 2 GM/DAY., 08/28/2017 5:46 PM CDT 1 tablet acetaminophen-codeine (TYLENOL #3) Given 300-30 mg per tablet 1-2 tablet 1-2 tablet, Oral, Every 4 hours PRN, moderate pain (pain score 4-6), Startin g Thu08/28/17 at 1612, Do not exceed 4 GM/DAY of acetaminophen. If 65 or olde r do not exceed 3 GM/DAY. If chronic alcoholic do not exceed 2 GM/DAY., 08/29/2017 9:19 AM CDT 100 mg allopurinol (ZYLOPRIM) tablet 100 mg Given 100 mg, Oral, Daily, First dose on Thu08/28/17 at 1630 100 mg Given 08/28/2017 5:26 PM CDT 08/28/2017 11:36 AM CDT 15 mL balanced salt irrig (BSS) solution Given As needed, Starting Thu08/28/17 at 1136, Intra-op 08/29/2017 5:41 AM CDT 100 mg Abdomina l Tissue enoxaparin (LOVENOX) syringe 100 mg Given 100 mg, Subcutaneous, Every 12 hours, First dose on Thu08/28/17 at 1630 100 mg Abdominal Tissue Given 08/28/2017 5:26 PM CDT 08/28/2017 9:13 AM CDT 1 drop flurbiprofen (OCUFEN) 0.03 % ophthalmic Given solution 1 drop 1 drop, Right Eye, Every 5 min, First dose on Thu08/28/17 at 0900, For 3 doses , Pre-op, Start medications in Pre-op Admissions 45 minutes prior to surgery, 1 drop Given 08/28/2017 9:08 AM CDT 1 drop Given 08/28/2017 9:01 AM CDT 08/28/2017 11:36 AM CDT 5 mL gentamicin (GARAMYCIN) 0.3 % ophthalmic Given solution As needed, Starting Thu08/28/17 at 1136, Intra-op 08/28/2017 9:13 AM CDT 1 drop homatropine (ISOPTO HOMATROPINE) 5 % Given ophthalmic solution 1 drop 1 drop, Both Eyes, Every 5 min, First dose on Thu08/28/17 at 0900, For 3 doses , Pre-op, Start medications in Pre-op Admissions 45 minutes prior to surgery, 1 drop Given 08/28/2017 9:06 AM CDT 1 drop Given 08/28/2017 9:00 AM CDT 08/29/2017 9:21 AM CDT 1 drop homatropine (ISOPTO HOMATROPINE) 5 % Given ophthalmic solution 1 drop 1 drop, Right Eye, 2 times daily, First dose on Thu08/28/17 at 2100, Contact lenses should be removed before installation. Do not reinsert contact lenses within 15 minutes of drops., 1 drop Given 08/28/2017 8:32 PM CDT 08/29/2017 9:19 AM CDT 25 mg hydroCHLOROthiazide (HYDRODIURIL) tablet Given 25 mg 25 mg, Oral, Daily, First dose on Thu08/28/17 at 1630 lactated Ringers infusion Starting Thu08/28/17 at 0817, For 1 dose , Created by aarti frank, 08/28/2017 11:27 AM CDT lactated ringers infusion New Bag 50 mL/hr, Intravenous, Continuous, Starting Thu08/28/17 at 1000 50 mL/hr 50 mL/hr New Bag 08/28/2017 9:43 AM CDT 08/29/2017 9:19 AM CDT 5 mg lisinopril (PRINIVIL,ZESTRIL) tablet 5 Given mg 5 mg, Oral, Daily, First dose on Thu08/28/17 at 1630 08/28/2017 1:47 PM CDT 40 mg Right Ey e methylPREDNISolone acetate (DEPO-MEDROL) Given 40 mg/mL injection As needed, Starting Thu08/28/17 at 1347, Intra-op 08/29/2017 9:19 AM CDT 100 mg metoprolol succinate (TOPROL-XL) 24 hr Given tablet 100 mg 100 mg, Oral, Daily, First dose on Thu08/29/17 at 0900, DO NOT CRUSH OR CHEW., 08/28/2017 11:37 AM CDT 1,000 mL multiple electrolyte (pH 7.4) (NORMOSOL) Given solution As needed, Starting Thu08/28/17 at 1137, Intra-op 08/28/2017 1:24 PM CDT 2 drops [id number] Given (NEOSPORIN) ophthalmic solution As needed, Starting Thu08/28/17 at 1324, Intra-op 08/28/2017 9:13 AM CDT 1 drop ofloxacin (OCUFLOX) 0.3 % ophthalmic Given solution 1 drop 1 drop, Right Eye, Every 5 min, First dose on Thu08/28/17 at 0900, For 3 doses , Pre-op 1 drop Given 08/28/2017 9:07 AM CDT 1 drop Given 08/28/2017 9:01 AM CDT 08/29/2017 1:09 PM CDT 1 drop ofloxacin (OCUFLOX) 0.3 % ophthalmic Given solution 1 drop 1 drop, Right Eye, 4 times daily, First dose on Thu08/28/17 at 2100 1 drop Given 08/29/2017 9:21 AM CDT 1 drop Given 08/28/2017 8:32 PM CDT 08/28/2017 9:43 AM CDT 8 mg ondansetron (ZOFRAN-ODT) disintegrating Given tablet 8 mg 8 mg, Sublingual, Once, Thu08/28/17 at 1000, For 1 dose, Pre-op, Do not remove from blister until needed. Peel backing off the blister, do not push tablet through. Using dry hands, place tablet on tongue and allow to dissolve. Damián schneider with saliva., 08/28/2017 9:13 AM CDT 1 drop phenylephrine (MYDFRIN) 2.5 % ophthalmic Given solution 1 drop 1 drop, Both Eyes, Every 5 min, First dose on Thu08/28/17 at 0900, For 3 doses , Pre-op, Start medications in Pre-op Admissions 45 minutes prior to surgery, 1 drop Given 08/28/2017 9:06 AM CDT 1 drop Given 08/28/2017 9:00 AM CDT 08/28/2017 11:29 AM CDT 120 drops povidone-iodine 5 % ophthalmic solution Given As needed, Starting Thu08/28/17 at 1129, Intra-op 08/29/2017 1:09 PM CDT 1 drop prednisoLONE acetate (PRED FORTE) 1 % Given ophthalmic suspension 1 drop 1 drop, Right Eye, 4 times daily, First dose on Thu08/28/17 at 2100, SHAKE WELL BEFORE USING, 1 drop Given 08/29/2017 9:21 AM CDT 1 drop Given 08/28/2017 8:32 PM CDT 08/28/2017 11:40 AM CDT 1,000 mL sterile water irrigation irrigation Given solution As needed, Starting Thu08/28/17 at 1140, Intra-op 08/28/2017 1:53 PM CDT 1 application tobramycin-dexamethasone (TOBRADEX) Given ophthalmic ointment As needed, Starting Thu08/28/17 at 1240, Intra-op 08/28/2017 9:13 AM CDT 1 drop tropicamide (MYDRIACYL) 1 % ophthalmic Given solution 1 drop 1 drop, Both Eyes, Every 5 min, First dose on Thu08/28/17 at 0900, For 3 doses , Pre-op, Start medications in Pre-op Admissions 45 minutes prior to surgery, 1 drop Given 08/28/2017 9:07 AM CDT 1 drop Given 08/28/2017 9:00 AM CDT documented in this encounter
--- OUTSIDE RECORDS SUMMARY | 2019-06-11 09:02 | XMS REPORT | Clinical Summary ---
Author Author [facility] Organization [facility] Address Unknown Phone Unavailable Care Team Providers Care Information Systems Security Analyst Name Role Phone Noemy Lebron DO PCP Tyree Sadler MD [phone] Source Comments Some departments are not documenting in the electronic medical record. 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 Last Filed Vital Signs Reading Time Taken Comments Vital Sign 160/70 07/14/2017 11:48 AM CDT Blood Pressure - - Pulse - - Temperature - - Respiratory Rate - - Oxygen Saturation - - Inhaled Oxygen Concentration 117.5 kg (259 lb) 07/14/2017 11:48 AM CDT Weight 177.8 cm (5' 10") 07/14/2017 11:48 AM CDT Height 37.16 07/14/2017 11:48 AM CDT Body Mass Index Plan of Treatment Health Maintenance Due Date Last Done Comments HEPATITIS C SCREENING 1955 DTAP/TDAP VACCINES (1 - 01/27/1967 Tdap) HIV SCREENING 01/27/1971 PHYSICAL (COMPREHENSIVE) 01/27/1974 EXAM COLORECTAL CANCER 01/27/2006 SCREENING SHINGLES RECOMBINANT 01/27/2006 VACCINE (1 of 2) INFLUENZA VACCINE 10/28/2018 Results Not on filefrom Last 3 Months 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
--- OUTSIDE RECORDS SUMMARY | 2019-06-11 09:02 | XMS REPORT | Clinical Summary ---
Author Author [facility] Organization [facility] Address Unknown Phone Unavailable Care Team Providers Care Digital Marketing Coordinator Name Role Phone Noemy Lebron PCP Allergies No Known Allergies Medications End Date Status Medication Sig Dispensed Refills Start Date Active metoprolol tartrate Take 100 mg 0 (LOPRESSOR) 100 MG tablet by mouth daily. Active lisinopril Take 5 mg by 0 (PRINIVIL,ZESTRIL) 2.5 MG mouth daily. tablet Active hydroCHLOROthiazide Take 25 mg by 0 (HYDRODIURIL) 25 MG mouth daily. tablet Active allopurinol (ZYLOPRIM) Take 100 mg 0 100 MG tablet by mouth daily. Active warfarin (COUMADIN) 5 MG Take 5 mg by 0 tablet mouth every evening. Active enoxaparin (LOVENOX) 100 Inject 100 mg 0 mg/mL Syrg under the skin every 12 (twelve) hours. Active ofloxacin (OCUFLOX) 0.3 % Instill 1 5 mL 0 ophthalmic solution drop into the 8 right eye 4 (four) times a day. Active homatropine (ISOPTO Instill 1 15 mL 0 HOMATROPINE) 5 % drop into the 8 ophthalmic solution right eye 2 (two) times a day. Active prednisoLONE acetate Instill 1 5 mL 0 08/29 (PRED FORTE) 1 % drop into the 8 ophthalmic suspension right eye 4 (four) times a day. Active Problems Problem Noted Date Recent partial retinal detachment, right 08/26/2017 Lattice degeneration of peripheral retina, left 07/30 Social History Date Tobacco Use Types Packs/Day [...] 08/28/2017 8:36 AM CDT Body Mass Index Plan of Treatment Not on file Implants Device Identifier Shelf Expiration Date Model / Serial / L ot Implanted Type Area Manufactur er 01/27/2021 92-50-6.4 / / [id number] Implant Eye Retinal Sponge Grooved Non-Tissue Right: Eye WALLISIAN 2.3mm X 6.4mm Style 516g 92-50-6.4 Implant OPH THALMIC - [id number] Implanted: Qty: 1 on 08/28/2017 by Antonio Colbert MD at [facility] 08/22/2020 92-02 / / [id number] Implant Eye Scleral Buckle Band Non-Tissue Right: Eye WALLISIAN Silicone Style 240 2.5 92-02 - Implant OPHTHAL LINDA [id number] Implanted: Qty: 1 on 08/28/2017 by Antonio Colbert MD at [facility] Trapeze In Leg Vein Occlusion Device Results Not on filefrom Last 3 Months Insurance Type Payer Benefit Subscriber ID Effective Phone Address Plan / Dates Group AETNA AETNA xxxxxxxxx 2002-P SIGNATURE resent [facility] [place] Ron Gaxiola Personal/F Self 1955 [address] [place] (Home) [place] [id number] Ron Gaxiola Personal/F Self 1955 [address] (Home) [place] [address] Advance Directives For more information, please contact: [phone] 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
--- OUTSIDE RECORDS SUMMARY | 2019-06-11 09:02 | XMS REPORT | Encounter Summary ---
Author Author [facility] Organization [facility] Address Unknown Phone Unavailable Care Team Providers Care Stock Parts Fabricator Name Role Phone LebronNoemy finnegan PCP Reason for Visit * Auth/Cert Referred By Contact Referred To Contact Status Reason Specialty Diagnoses / Procedures Diagnoses RETINAL DETACHMENT H33.001 P rocedures ID REPAIR RETINAL DETACHMENT SCLERAL BUCKLING ID REPAIR RETINAL DETACHMENT SCLERAL BUCKLING SCLEARL BUCKLE, CRYOPEXY, DRAINAGE OF SUBRETINAL FLUID Encounter Details Care Team Description [place] [address] [place] [address] [phone] Macula-off rhegmatogenous retinal detach ment, right; Lattice degeneration of peripheral retina, bilateral; Retinal edema of right eye 08/28/2017 [facility] - Encounter [address] 08/29/2017 [place] [address] Social History Date Tobacco Use Types Packs/Day [...] Colbert MD - 08/29/2017 9:56 AM CDT [facility] DISCHARGE NOTE Patient: Mariola Gaxiola : 1955 [...] Colbert MD - 08/26/2017 4:58 PM CDT [facility] History & Physical Date: 08/26/2017 PCP: No [...] general endotracheal anesthetic was induced by the [facility] of anesthesia without complication. The patient was [...] incisions were marked with 6-0 silk suture. [place] muscle hooks were then used to identify [...] in good condition. Antonio Colbert MD, FACS [id number] CC: * Plan of Care - Irish [...] eye surgery. He needed to call for anesthetic assistant before getting out of bed. They both [...] MD - Primary Anesthesia Type: General Staff: Library Sales Consultant: Michelle Sprague RN Relief Library Sales Consultant: Esthela Rossi RN Relief Scrub: Meme Mornoe Scrub Person: Jeremias Guan; Johanna Anderson Private Scrub: Avis Yusuf RN Float: Esthela Rossi RN Anesthesiologist: Anthony Davies MD Anesthesiologist Aircraft Engine Dismantler: REESE Foss Findings: Retinal detachment 5:00-11:00, 5 mattress sutures SN anchor suture #240 band and 516-G sponge OD, indirect laser #290 OS Estimated Blood Loss: Minimal Specimens: . ID Source Type Tests Collected By Collected At A Right Eye Culture CULTURE, ANAEROBE CULTURE, EYE Antonio Colbert MD 08/28/17 1316 Description: Right Eye/Orbit, [id number], [id number] Comment: Pre-op diagnosis: RETINAL DETACHMENT H33.001 Implants: Implant Name Type Inv. Item Serial No. Solar Energy Technician Lot No. LRB No. Used Action IMPLANT EYE RETINAL SPONGE GROOVED 2.3MM X 6.4MM STYLE 516G 92-50-6.4 - [id number] Non-Tissue Implant IMPLANT EYE RETINAL SPONGE GROOVED 2.3MM X 6.4MM STYLE 516 G 92-50-6.4 [facility] OPHTHALMIC [id number] Right 1 Implanted IMPLANT EYE SCLERAL BUCKLE BAND SILICONE STYLE 240 2.5 92-02 - [id number] Non-Ti ssue Implant IMPLANT EYE SCLERAL BUCKLE BAND SILICONE STYLE 240 2.5 92-02 [employer] OPHTHALMIC [id number] Right 1 Implanted Complications: None Antonio Colbert [...] Culture Result No growth at 2 weeks [facility] Specimen Culture - Right Eye Performing Organization Address City/State/Zipcode Ph one Number [facility] [address] [address] LABORATORIES * Culture, Anaerobe (08/28/2017 1:16 PM CDT) Pathologist [facility] Isolate 1 Few (A) [facility] Isolate 1 Cutibacterium acnes (formerly [facility] Propion[facility]) (A) [facility] Isolate 1 No susceptibility testing done [facility] on this isolate (A) [facility] Specimen Culture - Right Eye Performing Organization Address [facility] one Number [address] [address] LABORATORIES * Complete Blood Count (08/28/2017 8:29 AM CDT) Pathologist [facility] WBC 10.60 4.00 - 11.00 TH/uL [facility] RBC 5.54 4.31 - 5.84 MIL/uL [facility] Hemoglobin 16.6 13.0 - 17.0 g/dL [facility] Hematocrit 49 40 - 50 % [facility] MCV 89 80 - [address] [facility] MCH 30 27 - [address] [facility] MCHC 34 32 - 36 % [facility] RDW 13.6 9.0 - 14.5 % [facility] Platelet Count 301 140 - 400 TH/uL [facility] MPV 10.7 9.4 - 12.[address] [facility] Nucleated RBCs 0 0 - 0 /100 [facility] Specimen Blood Performing Organization Address [facility] one Number [address] [address] LABORATORIES * Basic Metabolic Panel (08/28/2017 8:29 AM CDT) Pathologist [facility] Sodium 142 133 - 147 MEQ/L [facility] Potassium 4.2 3.5 - 5.3 MEQ/L [facility] Chloride 104 96 - 112 MEQ/L [facility] Carbon Dioxide 25 20 - 32 MEQ/L [facility] Anion Gap 13 5 - 17 [facility] Calcium 9.9 8.4 - 10.5 mg/dL [facility] Glucose 96 70 - 100 mg/dL [facility] Blood Urea 21 7 - 26 mg/dL [facility] Creatinine 0.8 0.6 - 1.3 mg/dL [facility] eGFR Male AA 119 60 - 200 [facility] Comment: REGIONAL Chronic Kidney Disease less LABORATORIES than 60 mL/min/1.73 sq.m Kidney failure less than 15 mL/min/1.73 sq.m eGFR Male 98 60 - 200 [facility] Non-AA Comment: REGIONAL Chronic Kidney Disease less LABORATORIES than 60 mL/min/1.73 sq.m Kidney failure less than 15 mL/min/1.73 sq.m Specimen Blood Performing Organization Address [facility] Ph one Number [address] [address] LABORATORIES * Clotting Screen (08/28/2017 8:29 AM CDT) Protime 22.1 (H) 11.4 - 15.[address] [facility] INR 1.9 (H) 0.8 - 1.2 [facility] APTT 43 (H) 22 - [address] [facility] Specimen Blood Performing Organization Address [facility] one Number [address] [address] LABORATORIES documented in this encounter Visit Diagnoses Diagnosis Macula-off rhegmatogenous retinal detac hment, right Lattice degeneration of peripheral reti na, bilateral Lattice degeneration of peripheral reti na Retinal edema of right eye Recent partial retinal detachment, righ t Lattice degeneration of peripheral reti na, left Lattice degeneration of peripheral reti na documented in this encounter Administered Medications Action [...] 100 mg Given 08/28/2017 5:26 PM CDT 08/29/2017 5:41 AM CDT 100 mg Abdomina [...] drop Given 08/28/2017 9:01 AM CDT 08/28/2017 9:13 AM CDT 1 drop homatropine [...] Daily, First dose on Thu08/28/17 at 1630 08/29/2017 9:19 AM CDT 100 mg metoprolol succinate (TOPROL-XL) 24 hr Given tablet 100 mg 100 mg, Oral, Daily, First dose on Thu08/29/17 at 0900, DO NOT CRUSH OR CHEW., 08/28/2017 9:13 AM CDT 1 drop ofloxacin [...] drop Given 08/28/2017 9:00 AM CDT 08/29/2017 1:09 PM CDT 1 drop prednisoLONE acetate (PRED FORTE) 1 % Given ophthalmic suspension 1 drop 1 drop, Right Eye, 4 times daily, First dose on Thu08/28/17 at 2100, SHAKE WELL BEFORE USING, 1 drop Given 08/29/2017 9:21 AM CDT 1 drop Given 08/28/2017 8:32 PM CDT 08/28/2017 9:13 AM CDT 1 drop tropicamide [...]
--- OUTSIDE RECORDS SUMMARY | 2019-06-11 09:03 | XMS REPORT | Continuity of Care Document ---
Author Organization Unknown Address Unknown Phone Unavailable Allergies Active Description Code Type Severity Reaction Onset Reported/Identified Relationship to Patient Clinical Status Yes No Known Drug Allergies [id number] Drug Allergy Unknown N/A 07/13/2011 Medications There is no data. Problems Date Dx Coded Attending Type Code Diagnosis Diagnosed By 07/13/2011 Ot 918.0 SUPE RFIC INJ PERIOCULAR 07/13/2011 Ot E000.8 OTH ER EXTERNAL CAUSE STATUS 07/13/2011 Ot E029.9 OTH ER ACTIVITY 07/13/2011 Ot E849.0 ACC IDENT IN HOME 07/13/2011 Ot E928.9 ACC IDENT NOS 07/13/2011 Ot V06.1 [id number], COMBINED [ 01/23/2015 PAULA GOMES MD Ot R10.32 02/14/2015 PAULA GOMES MD Ot R10.32 04/03/2015 VASQUEZ RINALDI MD Ot I82.431 04/03/2015 VASQUEZ RINALDI MD Ot I82.441 04/03/2015 VASQUEZ RINALDI MD Ot I89 .0 04/24/2015 VASQUEZ RINALDI MD Ot I82.431 04/24/2015 VASQUEZ RINALDI MD Ot I82.441 04/24/2015 VASQUEZ RINALDI MD Ot I89 .0 04/30/2016 PAULA GOMES MD Ot R10.32 LEFT LOWER QUADRANT PAIN 04/30/2016 VASQUEZ RINALDI MD Ot I82.431 ACUTE EMBOLISM AND THROMBOSIS OF RIGHT P 04/30/2016 VASQUEZ RINALDI MD Ot I82.441 ACUTE EMBOLISM AND THROMBOSIS OF RIGHT T 04/30/2016 VASQUEZ RINALDI MD Ot I89 .0 LYMPHEDEMA, NOT ELSEWHERE CLASSIFIED 05/01/2016 MAGGIE LÓPEZ DO Ot E78.00 PURE HYPERCHOLESTEROLEMIA, UNSPECIFIED 05/01/2016 MAGGIE LÓPEZ DO Ot M10.9 GOUT, UNSPECIFIED 05/01/2016 MAGGIE LÓPEZ DO Ot M85.87 2 OTH DISRD OF BONE DENSITY AND STRUCTURE, 06/02/2016 RENE RUST MAGGIE Ot E78.00 PURE HYPERCHOLESTEROLEMIA, UNSPECIFIED 06/02/2016 RENE RUST MAGGIE Ot M10.9 GOUT, UNSPECIFIED 06/02/2016 ULI LÓPEZ DOI Ot M85.87 2 OTH DISRD OF BONE DENSITY AND STRUCTURE, 01/19/2017 VASQUEZ RINALDI MD Ot 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 01/19/2017 VASQUEZ RINALDI MD Ot I87.331 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 01/19/2017 VASQUEZ RINALDI MD, Ot I89 .0 LYMPHEDEMA, NOT ELSEWHERE CLASSIFIED 01/19/2017 VASQUEZ RINALDI MD, Ot L97.212 NON-PRESSURE CHRONIC ULCER OF RIGHT CALF 01/22/2017 VASQUEZ RINALDI MD, Ot 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 01/22/2017 VASQUEZ RINALDI MD, Ot I87.331 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 01/22/2017 VASQUEZ RINALDI MD, Ot I89 .0 LYMPHEDEMA, NOT ELSEWHERE CLASSIFIED 01/22/2017 VASQUEZ RINALDI MD Ot L97.212 NON-PRESSURE CHRONIC ULCER OF RIGHT CALF 02/05/2017 VASQUEZ RINALDI MD Ot I87.331 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 02/05/2017 VASQUEZ RINALDI MD, Ot I89 .0 LYMPHEDEMA, NOT ELSEWHERE CLASSIFIED 02/05/2017 VASQUEZ RINALDI MD, Ot L97.212 NON-PRESSURE CHRONIC ULCER OF RIGHT CALF 03/18/2018 RENE RUST MAGGIE Ot E78.00 PURE HYPERCHOLESTEROLEMIA, UNSPECIFIED 03/18/2018 RENE RUST MAGGIE Ot I10 ESSENTIAL (PRIMARY) HYPERTENSION 03/18/2018 RENE RUST MAGGIE Ot I89.0 LYMPHEDEMA, NOT ELSEWHERE CLASSIFIED 03/18/2018 RENE RUST MAGGIE Ot L02.41 5 CUTANEOUS ABSCESS OF RIGHT LOWER LIMB 03/18/2018 RENE DO MAGGIE Ot L03.11 5 CELLULITIS OF RIGHT LOWER LIMB 03/18/2018 RENE RUST MAGGIE Ot L30.9 DERMATITIS, UNSPECIFIED 03/18/2018 RENE RUST MAGGIE Ot M10.9 GOUT, UNSPECIFIED 03/18/2018 ULI LÓPEZ DOI Ot Z79.01 HALFWAY (CURRENT) USE OF ANTICOAGULANT 03/18/2018 MAGGIE LÓPEZ DO Ot Z86.71 8 PERSONAL HISTORY OF OTHER VENOUS THROMBO 03/18/2018 MAGGIE LÓPEZ DO Ot Z87.89 1 PERSONAL HISTORY OF NICOTINE DEPENDENCE Procedures There is no data. Results Test Result Range Whole blood basic metabolic panel - 04/15 16:37 Serum or plasma sodium measurement (moles/volume) 138 mmol/L 135-145 Serum or plasma potassium measurement (moles/volume) 4.1 mmol/L 3.6-5.0 Serum or plasma chloride measurement (moles/volume) 102 mmol/L 98-107 Carbon dioxide 26 mmol/L 21-32 Serum or plasma anion gap determination (moles/volume) 10 mmol/L 5-14 Serum or plasma urea nitrogen measurement (mass/volume ) 15 mg/dL 7-18 Serum or plasma creatinine measurement (mass/volume) 1.01 mg/dL 0.60-1.30 Serum or plasma urea nitrogen/creatinine mass ratio 15 NRG Serum or plasma creatinine measurement w ith calculation of estimated glomerular filtration rate > NRG Serum or plasma glucose measurement (mass/volume) 88 mg/dL 70-105 Serum or plasma calcium measurement (mass/volume) 9.8 mg/dL 8.5-10.1 Serum or plasma uric acid measurement (m ass/volume) - 04/30/16 16:37 Serum or plasma uric acid measurement (mass/volume) 6.5 mg/dL 2.6-7.2 Erythrocyte sedimentation rate by claudette gren method - 04/30/16 16:37 Erythrocyte sedimentation rate by westergren method 4 mm 0- 30 Complete blood count (CBC) with automate d white blood cell (WBC) differential - 03/15/18 18:40 Blood leukocytes automated count (number/volume) 8.1 10*3/uL 4.3-11.0 Blood erythrocytes automated count (number/volume) 4.83 10*6/uL 4.35-5.85 Venous blood hemoglobin measurement (mass/volume) 14.4 g/dL 13.3-17.7 Blood hematocrit (volume fraction) 43 % 40-54 Automated erythrocyte mean corpuscular volume 89 [ foz_us] 80-99 Automated erythrocyte mean corpuscular h emoglobin (mass per erythrocyte) 30 pg 25-34 Automated erythrocyte mean corpuscular h emoglobin concentration measurement (mass/volume) 33 g/dL 32-36 Automated erythrocyte distribution width ratio 14. 1 % 10.0- 14.5 Automated blood platelet count (count/volume) 239 10*3/uL 130-400 Automated blood platelet mean volume measurement 10.8 [foz_us] 7.4-10.4 Automated blood neutrophils/100 leukocytes 55 % 42-75 Automated blood lymphocytes/100 leukocytes 35 % 12-44 Blood monocytes/100 leukocytes 6 % 0-12 Automated blood eosinophils/100 leukocytes 3 % 0-10 Automated blood basophils/100 leukocytes 1 % 0-10 Blood neutrophils automated count (number/volume) 4.5 10*3 1.8-7.8 Blood lymphocytes automated count (number/volume) 2.8 10*3 1.0-4.0 Blood monocytes automated count (number/volume) 0. 5 10*3 0.0-1.0 Automated eosinophil count 0.3 10*3/uL 0 .0-0.3 Automated blood basophil count (count/volume) 0.1 10*3/uL 0.0-0.1 PT panel in platelet poor plasma by coag ulation assay - 03/15/18 18:40 Prothrombin time (PT) in platelet poor plasma by coagu lation assay 24.6 s 12.2-14.7 INR in platelet poor plasma or blood by coagulation as say 2.2 0.8-1.4 Blood lactic acid measurement (moles/vol ume) - 03/15/18 18:40 Blood lactic acid measurement (moles/volume) 0.85 mmol/L 0.50-2.00 Comprehensive metabolic panel - 03/15/18 18:40 Serum or plasma sodium measurement (moles/volume) 139 mmol/L 135-145 Serum or plasma potassium measurement (moles/volume) 3.7 mmol/L 3.6-5.0 Serum or plasma chloride measurement (moles/volume) 106 mmol/L 98-107 Carbon dioxide 23 mmol/L 21-32 Serum or plasma anion gap determination (moles/volume) 10 mmol/L 5-14 Serum or plasma urea nitrogen measurement (mass/volume ) 15 mg/dL 7-18 Serum or plasma creatinine measurement (mass/volume) 0.83 mg/dL 0.60-1.30 Serum or plasma urea nitrogen/creatinine mass ratio 18 NRG Serum or plasma creatinine measurement w ith calculation of estimated glomerular filtration rate > NRG Serum or plasma glucose measurement (mass/volume) 86 mg/dL 70-105 Serum or plasma calcium measurement (mass/volume) 9.6 mg/dL 8.5-10.1 Serum or plasma total bilirubin measurement (mass/volu me) 0.4 mg/dL 0.1-1.0 Serum or plasma alkaline phosphatase jose surement (enzymatic activity/volume) 72 U/L 40-136 Serum or plasma aspartate aminotransfera se measurement (enzymatic activity/volume) 26 U/L 5-34 Serum or plasma alanine aminotransferase measurement (enzymatic activity/volume) 33 U/L 0-55 Serum or plasma protein measurement (mass/volume) 7.0 g/dL 6.4-8.2 Serum or plasma albumin measurement (mass/volume) 3.9 g/dL 3.2-4.5 CALCIUM CORRECTED 9.7 mg/dL 8.5-10.1 Bacterial blood culture - 03/15/18 18:40 Bacterial blood culture NG NRG Bacterial blood culture - 03/15/18 18:48 Bacterial blood culture NG NRG Complete blood count (CBC) with automate d white blood cell (WBC) differential - 03/16/18 05:45 Blood leukocytes automated count (number/volume) 6.0 10*3/uL 4.3-11.0 Blood erythrocytes automated count (number/volume) 5.18 10*6/uL 4.35-5.85 Venous blood hemoglobin measurement (mass/volume) 15.6 g/dL 13.3-17.7 Blood hematocrit (volume fraction) 46 % 40-54 Automated erythrocyte mean corpuscular volume 89 [ foz_us] 80-99 Automated erythrocyte mean corpuscular h emoglobin (mass per erythrocyte) 30 pg 25-34 Automated erythrocyte mean corpuscular h emoglobin concentration measurement (mass/volume) 34 g/dL 32-36 Automated erythrocyte distribution width ratio 14. 2 % 10.0- 14.5 Automated blood platelet count (count/volume) 270 10*3/uL 130-400 Automated blood platelet mean volume measurement 10.7 [foz_us] 7.4-10.4 Automated blood neutrophils/100 leukocytes 80 % 42-75 Automated blood lymphocytes/100 leukocytes 20 % 12-44 Blood monocytes/100 leukocytes 1 % 0-12 Automated blood eosinophils/100 leukocytes 0 % 0-10 Automated blood basophils/100 leukocytes 0 % 0-10 Blood neutrophils automated count (number/volume) 4.8 10*3 1.8-7.8 Blood lymphocytes automated count (number/volume) 1.2 10*3 1.0-4.0 Blood monocytes automated count (number/volume) 0. 1 10*3 0.0-1.0 Automated eosinophil count 0.0 10*3/uL 0 .0-0.3 Automated blood basophil count (count/volume) 0.0 10*3/uL 0.0-0.1 PT panel in platelet poor plasma by coag ulation assay - 03/16/18 05:45 Prothrombin time (PT) in platelet poor plasma by coagu lation assay 23.8 s 12.2-14.7 INR in platelet poor plasma or blood by coagulation as say 2.1 0.8-1.4 Comprehensive metabolic panel - 03/16/18 05:45 Serum or plasma sodium measurement (moles/volume) 140 mmol/L 135-145 Serum or plasma potassium measurement (moles/volume) 4.1 mmol/L 3.6-5.0 Serum or plasma chloride measurement (moles/volume) 111 mmol/L 98-107 Carbon dioxide 20 mmol/L 21-32 Serum or plasma anion gap determination (moles/volume) 9 mmol/L 5-14 Serum or plasma urea nitrogen measurement (mass/volume ) 16 mg/dL 7-18 Serum or plasma creatinine measurement (mass/volume) 0.85 mg/dL 0.60-1.30 Serum or plasma urea nitrogen/creatinine mass ratio 19 NRG Serum or plasma creatinine measurement w ith calculation of estimated glomerular filtration rate > NRG Serum or plasma glucose measurement (mass/volume) 156 mg/dL 70-105 Serum or plasma calcium measurement (mass/volume) 9.2 mg/dL 8.5-10.1 Serum or plasma total bilirubin measurement (mass/volu me) 0.5 mg/dL 0.1-1.0 Serum or plasma alkaline phosphatase jose surement (enzymatic activity/volume) 73 U/L 40-136 Serum or plasma aspartate aminotransfera se measurement (enzymatic activity/volume) 24 U/L 5-34 Serum or plasma alanine aminotransferase measurement (enzymatic activity/volume) 34 U/L 0-55 Serum or plasma protein measurement (mass/volume) 6.9 g/dL 6.4-8.2 Serum or plasma albumin measurement (mass/volume) 3.8 g/dL 3.2-4.5 CALCIUM CORRECTED 9.4 mg/dL 8.5-10.1 PT panel in platelet poor plasma by coag ulation assay - 03/17/18 04:05 Prothrombin time (PT) in platelet poor plasma by coagu lation assay 22.5 s 12.2-14.7 INR in platelet poor plasma or blood by coagulation as say 2.0 0.8-1.4 Vancomycin trough - 03/17/18 04:05 Vancomycin trough 16.8 ug/mL 10.0-20.0 Complete blood count (CBC) with automate d white blood cell (WBC) differential - 03/18/18 03:35 Blood leukocytes automated count (number/volume) 17.1 10*3/uL 4.3-11.0 Blood erythrocytes automated count (number/volume) 4.78 10*6/uL 4.35-5.85 Venous blood hemoglobin measurement (mass/volume) 14.2 g/dL 13.3-17.7 Blood hematocrit (volume fraction) 43 % 40-54 Automated erythrocyte mean corpuscular volume 89 [ foz_us] 80-99 Automated erythrocyte mean corpuscular h emoglobin (mass per erythrocyte) 30 pg 25-34 Automated erythrocyte mean corpuscular h emoglobin concentration measurement (mass/volume) 33 g/dL 32-36 Automated erythrocyte distribution width ratio 14. 7 % 10.0- 14.5 Automated blood platelet count (count/volume) 254 10*3/uL 130-400 Automated blood platelet mean volume measurement 10.5 [foz_us] 7.4-10.4 Automated blood neutrophils/100 leukocytes 78 % 42-75 Automated blood lymphocytes/100 leukocytes 17 % 12-44 Blood monocytes/100 leukocytes 5 % 0-12 Automated blood eosinophils/100 leukocytes 0 % 0-10 Automated blood basophils/100 leukocytes 0 % 0-10 Blood neutrophils automated count (number/volume) 13.3 10*3 1.8-7.8 Blood lymphocytes automated count (number/volume) 2.9 10*3 1.0-4.0 Blood monocytes automated count (number/volume) 0. 9 10*3 0.0-1.0 Automated eosinophil count 0.0 10*3/uL 0 .0-0.3 Automated blood basophil count (count/volume) 0.0 10*3/uL 0.0-0.1 Comprehensive metabolic panel - 03/18/18 03:35 Serum or plasma sodium measurement (moles/volume) 141 mmol/L 135-145 Serum or plasma potassium measurement (moles/volume) 3.4 mmol/L 3.6-5.0 Serum or plasma chloride measurement (moles/volume) 109 mmol/L 98-107 Carbon dioxide 23 mmol/L 21-32 Serum or plasma anion gap determination (moles/volume) 9 mmol/L 5-14 Serum or plasma urea nitrogen measurement (mass/volume ) 15 mg/dL 7-18 Serum or plasma creatinine measurement (mass/volume) 0.93 mg/dL 0.60-1.30 Serum or plasma urea nitrogen/creatinine mass ratio 16 NRG Serum or plasma creatinine measurement w ith calculation of estimated glomerular filtration rate > NRG Serum or plasma glucose measurement (mass/volume) 128 mg/dL 70-105 Serum or plasma calcium measurement (mass/volume) 8.3 mg/dL 8.5-10.1 Serum or plasma total bilirubin measurement (mass/volu me) 0.3 mg/dL 0.1-1.0 Serum or plasma alkaline phosphatase jose surement (enzymatic activity/volume) 62 U/L 40-136 Serum or plasma aspartate aminotransfera se measurement (enzymatic activity/volume) 16 U/L 5-34 Serum or plasma alanine aminotransferase measurement (enzymatic activity/volume) 28 U/L 0-55 Serum or plasma protein measurement (mass/volume) 5.8 g/dL 6.4-8.2 Serum or plasma albumin measurement (mass/volume) 3.2 g/dL 3.2-4.5 CALCIUM CORRECTED 8.9 mg/dL 8.5-10.1 Blood manual differential performed dete ction - 03/18/18 03:35 Blood monocytes/100 leukocytes 3 % NRG Manual blood segmented neutrophils/100 leukocytes 77 % NRG Blood band neutrophils/100 leukocytes 1 % NRG Manual blood lymphocytes/100 leukocytes 8 % NRG Manual eosinophils/100 leukocytes in nose 0 % NRG Manual blood basophils/100 leukocytes 0 % NRG Blood lymphocytes variant/100 leukocytes 11 % NRG Blood erythrocyte morphology finding identification NORMAL NRG PT panel in platelet poor plasma by coag ulation assay - 03/18/18 03:45 Prothrombin time (PT) in platelet poor plasma by coagu lation assay 23.9 s 12.2-14.7 INR in platelet poor plasma or blood by coagulation as say 2.1 0.8-1.4 Complete blood count (CBC) with automate d white blood cell (WBC) differential - 06/09/19 11:11 Blood leukocytes automated count (number/volume) 9.1 10*3/uL 4.3-11.0 Blood erythrocytes automated count (number/volume) 5.32 10*6/uL 4.35-5.85 Venous blood hemoglobin measurement (mass/volume) 16.2 g/dL 13.3-17.7 Blood hematocrit (volume fraction) 48 % 40-54 Automated erythrocyte mean corpuscular volume 90 [ foz_us] 80-99 Automated erythrocyte mean corpuscular h emoglobin (mass per erythrocyte) 31 pg 25-34 Automated erythrocyte mean corpuscular h emoglobin concentration measurement (mass/volume) 34 g/dL 32-36 Automated erythrocyte distribution width ratio 13. 9 % 10.0- 14.5 Automated blood platelet count (count/volume) 271 10*3/uL 130-400 Automated blood platelet mean volume measurement 10.6 [foz_us] 7.4-10.4 Automated blood neutrophils/100 leukocytes 53 % 42-75 Automated blood lymphocytes/100 leukocytes 39 % 12-44 Blood monocytes/100 leukocytes 7 % 0-12 Automated blood eosinophils/100 leukocytes 0 % 0-10 Automated blood basophils/100 leukocytes 1 % 0-10 Blood neutrophils automated count (number/volume) 4.8 10*3 1.8-7.8 Blood lymphocytes automated count (number/volume) 3.5 10*3 1.0-4.0 Blood monocytes automated count (number/volume) 0. 6 10*3 0.0-1.0 Automated eosinophil count 0.0 10*3/uL 0 .0-0.3 Automated blood basophil count (count/volume) 0.1 10*3/uL 0.0-0.1 Comprehensive metabolic panel - 06/09/19 11:11 Serum or plasma sodium measurement (moles/volume) 140 mmol/L 135-145 Serum or plasma potassium measurement (moles/volume) 4.2 mmol/L 3.6-5.0 Serum or plasma chloride measurement (moles/volume) 105 mmol/L 98-107 Carbon dioxide 29 mmol/L 21-32 Serum or plasma anion gap determination (moles/volume) 6 mmol/L 5-14 Serum or plasma urea nitrogen measurement (mass/volume ) 15 mg/dL 7-18 Serum or plasma creatinine measurement (mass/volume) 0.96 mg/dL 0.60-1.30 Serum or plasma urea nitrogen/creatinine mass ratio 16 NRG Serum or plasma creatinine measurement w ith calculation of estimated glomerular filtration rate > NRG Serum or plasma glucose measurement (mass/volume) 94 mg/dL 70-105 Serum or plasma calcium measurement (mass/volume) 9.9 mg/dL 8.5-10.1 Serum or plasma total bilirubin measurement (mass/volu me) 0.8 mg/dL 0.1-1.0 Serum or plasma alkaline phosphatase jose surement (enzymatic activity/volume) 60 U/L 40-136 Serum or plasma aspartate aminotransfera se measurement (enzymatic activity/volume) 22 U/L 5-34 Serum or plasma alanine aminotransferase measurement (enzymatic activity/volume) 27 U/L 0-55 Serum or plasma protein measurement (mass/volume) 7.2 g/dL 6.4-8.2 Serum or plasma albumin measurement (mass/volume) 4.2 g/dL 3.2-4.5 CALCIUM CORRECTED 9.7 mg/dL 8.5-10.1 Magnesium - 06/09/19 11:11 Magnesium 1.7 mg/dL 1.6-2.4 Serum or plasma troponin i.cardiac measu rement (mass/volume) - 06/09/19 11:11 Serum or plasma troponin i.cardiac measurement (mass/v olume) < ng/mL <0.028 Serum or plasma thyrotropin measurement by detection limit <=0.05 miu/l (units/volume) - 06/09/19 11:11 Serum or plasma thyrotropin measurement by detection limit <=0.05 miu/l (units/volume) 1.22 u[iU]/mL 0.35-4.94 Serum or plasma C reactive protein measu rement (mass/volume) - 06/09/19 11:11 Serum or plasma C reactive protein measurement (mass/v olume) 0.57 mg/dL 0.00-0.50 PT panel in platelet poor plasma by coag ulation assay - 06/09/19 11:11 Prothrombin time (PT) in platelet poor plasma by coagu lation assay 23.4 s 12.2-14.7 INR in platelet poor plasma or blood by coagulation as say 2.0 0.8-1.4 Encounters ACCT No. Visit Date/Time Discharge Status Pt. Type Provider Facility Loc./Unit Complaint [id number] 06/09/2019 11:01:00 020 12:59:00 DIS Emergency MARIA E PENNINGTON, ANGELA Swanson [facility] ER L SHOULDER/NECK PAIN [id number] 03/15/2018 17:40:00 018 11:50:00 DIS Inpatient MAGGIE LÓPEZ DO, [facility] 4TH R LEG CELLULITIS [id number] 01/30/2017 08:04:00 017 23:59:59 CLS Outpatient VASQUEZ RINALDI MD [facility] WOUNDCARE [id number] 01/23/2017 08:54:00 017 23:59:59 CLS Outpatient VASQUEZ RINALDI [id number] 01/16/2017 09:00:00 017 23:59:59 CLS Outpatient VASQUEZ RINALDI MD [facility] WOUNDCARE [id number] 01/09/2017 08:54:00 017 23:59:59 CLS Outpatient DOUGLAS BUSTOS APRN [facility] WOUNDCARE [id number] 12/31/2016 13:33:00 017 23:59:59 CLS Outpatient VASQUEZ RINALDI MD [facility] WOUNDCARE [id number] 04/30/2016 16:25:00 017 23:59:59 CLS Outpatient MAGGIE LÓPEZ DO [facility] RAD PAIN LEFT FOOT [id number] 04/25/2015 00:10:00 016 23:59:59 CLS Preadmit VASQUEZ RINALDI MD [facility] WOUNDCARE [id number] 04/02/2015 10:23:00 016 00:01:00 DIS Outpatient VASQUEZ RINALDI MD [facility] WOUNDCARE [id number] 01/08/2015 16:47:00 015 23:59:59 CLS Outpatient PAULA GOMES MD [facility] RAD LEFT ING PAIN [id number] 07/13/2011 09:23:00 Document Registration
--- OUTSIDE RECORDS SUMMARY | 2019-06-11 09:03 | XMS REPORT ---
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 Role Phone MAGGIE LÓPEZ Unavailable NIMCO PENNINGTON, VASQUEZ Dos Santos Unavailable Unavailable ROBERT BOO DO Unavailable Unavailable MAGGIE LÓPEZ DO Unavailable Unavailable ELISEO PENNINGTON, PAULA Fuentes Unavailable Unavailable DO MAGGIE LÓPEZ PCP Allergies Normalized Allergy Reported Date of Reaction(s) Care Provider Facility Allergy Type classification allergen Allergy Onset DA (12 Unclassified No Known Drug 07-13-2011 - no information ROBERT BOO DO Not Available sources.) Allergies (42049) Medications Current Medications Medication Ingredient Drug Dose Dates Status Sig Sig Care Class(es) (Normalized) (Original) Provid er acetaminoph Acetaminoph Opioid 06-09-19 Active no Hydrocodon e/ no en 325 mg / en / Agonist 20 information Acetaminophe name HYDROcodone HYDROcodone n Active 1 (no bitartrate ORAL Every 6 phone) 5 mg oral Hours for tablet (1 Pain 10 3 source.) June 09, 2019 12:50pm allopurinol Allopurinol Xanthine 300 mg 03-15-20 Active no A llopurinol no 300 mg oral Translation Oxidase 18 information Active 300 name tablet (4 s: [ Inhibitor ORAL Daily (no sources.) Allopurinol 28 March phone) 300 MG Oral 2017 Tablet 7:01pm [Zyloprim]] Active no Allopuri no name inform nol (no ation Active phone) 100 ORAL Bedtime as needed for Gout Flare TAKES AN ADDITION AL TABLET NEEDED FOR GOUT FLARE 100 mg Completed no Allopuri (no inform nol 100 phone) ation Mg Tablet 100 Mg ORAL Bedtime as needed for Gout Flare TAKES AN ADDITION AL TABLET NEEDED FOR GOUT FLARE hydroCHLORO hydroCHLORO Thiazide 25 mg 03-15-20 Active no H ydrochlorot no thiazide 25 thiazide Diuretic 18 information hiazide na me mg oral Active 25 (no tablet (2 ORAL Daily phone) sources.) March 15, 2018 7:00pm levETIRAcet levETIRAcet no 06-09-19 Active no Levetiracet a no am 500 mg am information 20 information m Active 50 0 name oral tablet ORAL Twice A (no (1 source.) 30 phone) June 09, 2019 12:50pm 24 hr Metoprolol beta-Adrene 100 mg 03-15-20 Active no Meto prolol no metoprolol rgic 18 - information Succinate name succinate Spike 04-14-19 Active 100 (no 100 mg 19 ORAL Daily phone) extended 28 March release 2017 oral tablet 7:02pm (2 sources.) potassium Potassium no 10 mEq 03-15-20 Active no Potassi um no chloride 10 Chloride information 18 information Chloride name meq Active 10 (no extended ORAL Daily phone) release 28 March oral tablet 2017 (2 7:07pm sources.) no Prednisolon no Active no Prednisolone no information e information information Acetate/Pf nam e (1 source.) Acetate/Pf Active 1 (no OPTHALMIC phone) Twice A Day Completed/Discontinued Medications Medication Ingredient Drug Dose Dates Status Sig Sig Care Class(es) (Normalized) (Original) Provid er betamethaso Betamethaso Azole 15 g 03-18-20 Complete no C lotrimazole Maggie ne 0.5 ne / Antifungal, 18 d information /Betamethaso López mg/ml / Clotrimazol Corticoster ne Dip (no clotrimazol e oid (Clotrimazol phone) e 10 mg/ml e-Betamethas topical one Crm) 15 cream (2 Gm Cream..g. sources.) 0 Gm TOPICAL Twice A Day 1 Tube 03/18/18 doxycycline Doxycycline Tetracyclin 100 mg 03-18-20 Complete take 1 Doxycycline Maggie hyclate 100 e-class 18 d capsule by Hyclate 100 López mg oral Drug mouth twice Mg Capsule (no capsule (2 daily 100 Mg ORAL phone) sources.) Twice A Day 14 Cap 03/18/18 no Gentamicin no 07-13-19 Complete no Gentamicin no information Sulfate information 12 - d information Sulfat e name (1 source.) 03-15-20 Discontinued (no 18 0 OPTHALMIC phone) Give Every 4 Hrs On Schedule 5 July 13, 2011 10:06am March 15, 2018 APPLY THIN STRIP no Gentamicin no 07-13-19 Complete no Gentamicin Lis a K information Sulfate information 12 - d information Sulfat e [place] (1 source.) (Gentak) 03-15-20 (Gentak) 3.5 (no 3.5 Gm 18 Gm phone) Oint..gm., Oint..gm., 0 0 Opthalmic Opthalmic Give Every 4 Hrs On Schedule 07/13/11 Discontinued indomethaci Indomethaci Nonsteroida 03-15-20 Complete no Ind omethacin no n 25 mg n l 18 - d information Discontinued nam e oral Anti-inflam 03-16-20 25 ORAL (no capsule (2 matory Drug 18 Daily 30 phone) sources.) March 15, 2018 7:04pm March 16, 2018 MAY TAKE TID IF NEEDED 25 mg 03-15-2018 Completed take 1 Indometh Maggie - capsul acin 25 López 03-16-2018 e by Mg (no mouth Capsule, phone) once 25 Mg daily Oral Daily 03/15/18 Disconti nued lisinopril Lisinopril Angiotensin 2.5 mg 03-15-20 Complete take 2 Lisinopril no 2.5 mg oral Converting 18 - d tablets by Discontinu ed name tablet (4 Enzyme 03-16-20 mouth once 2.5 ORAL (no sources.) Inhibitor 18 daily Daily 30 phone) March 15, 2018 7:06pm March 16, 2018 TAKE 2 TABS DAILY 5 mg Active take 2 Lisinopr no name tablet il (no s by Active 5 phone) mouth ORAL once Daily daily TAKES 2 (2.5MG) TABLETS no Prednisolon no 1 Complete take 1 Prednisolone (n o information e information drop(s d drop(s) into Acetat e/Pf phone) (1 source.) Acetate/Pf ) the eye(s) (Prednisolon (Prednisolo twice daily e Acet 1% ne Acet 1% Eye Drop) 5 Eye Drop) 5 Ml Ml Drops.susp 1 Drops.susp Drop OPTHALMIC Twice A Day Problems Active Problems Problem Normalized Date of Normalized Normalized Provider Fac ility Classification Problem(s) Problem Problem Problem Sta tus Onset/Resoluti Duration on Skin and Cellulitis and Episodic Active MAGGIE RENE , No t Available subcutaneous abscess of DO (73557) tissue lower limb infections (14 Translations: sources.) [ CELLULITIS OF RIGHT LOWER LIMB, CUTANEOUS ABSCESS OF RIGHT LOWER LIMB] NEGATED Chronic venous Chronic Active no name Not Ne ilable no hypertension (44235) information (3 (idiopathic) sources.) with ulcer and inflammation of right lower extremity Allergic Dermatitis Episodic Active MAGGIE LÓPEZ , Not Av ailable reactions (4 Translations: DO (57399) sources.) [ DERMATITIS, UNSPECIFIED] Gout and other Gout Chronic Active MAGGIE LÓPEZ , Not Available crystal Translations: DO (20426) arthropathies [ GOUT, (8 sources.) UNSPECIFIED] Phlebitis; H/O: Deep vein Episodic Active VASQUEZ RINALDI No t Available thrombophlebit thrombosis , (24304) is and Translations: thromboembolis [ PERSONAL m (10 HISTORY OF sources.) OTHER VENOUS THROMBO, ACUTE EMBOLISM AND THROMBOSIS OF RIGHT P, ACUTE EMBOLISM AND THROMBOSIS OF RIGHT T] Essential Hypertensive Chronic Active MAGGIE LÓPEZ , Not Available hypertension disorder DO (82370) (9 sources.) Translations: [ ESSENTIAL (PRIMARY) HYPERTENSION] Other skin Inflammatory Episodic Active MAGGIE LÓPEZ [facility] disorders (2 dermatosis [address] [place] sources.) Hospital (24947) Epilepsy; Localization-r Chronic Active DO MAGGIE [facility] convulsions (1 elated(focal)( LÓPEZ [address] [place] source.) partial)[facility] epilepsy (04552) and epileptic syndromes with seizures of localized onset Other group home Episodic Active MAGGIE LÓPEZ , Not Ne ilable aftercare (3 (current) use DO (49637) sources.) of anticoagulants Other diseases Lymphedema of Chronic Active DO MAGGIE [facility] of veins and right lower L[place]PEZ [address] [place] lymphatics (1 limb Hospital source.) (16568) Other diseases Lymphedema, Chronic Active VASQUEZ RINALDI N ot Available of veins and not elsewhere MD (47477) lymphatics (7 classified sources.) NEGATED Non-pressure Chronic Active no name Not Avail able no chronic ulcer (56743) information (3 of right calf sources.) with fat layer exposed Screening and Personal Episodic Active MAGGIE LÓPEZ , Not Available history of history of DO (94165) mental health nicotine and substance dependence abuse codes (6 sources.) Other Shoulder pain Episodic Active DO MAGGIE [facility] non-traumatic LÓPEZ [id number] [place] [address] disorders (1 (24059) source.) Unclassified no information no information Active MAGGIE [facility]ARN [facility] (3 sources.) [address] [place] [address] ([address]) Past or Other Problems Problem Normalized Date of Normalized Normalized Provider Fac ility Classification Problem(s) Problem Problem Problem Sta tus Onset/Resoluti Duration on Peripheral and Atherosclerosi no information no information no name Not Available visceral s of [place] (54686) atherosclerosi arteries of s (2 sources.) right leg with ulceration of calf External cause Home accidents no information no information L ROSENDA EMA , DO Not Available codes: Place (72946) of occurrence (1 source.) Abdominal pain Left lower Episodic Completed PAULA [place] ot Available (1 source.) quadrant pain , (40571) Immunizations Need for Episodic Completed ROBERT BOO , DO Not Available and screening prophylactic (00848) for infectious vaccination disease (1 and source.) inoculation against diphtheria-tet anus-pertussis , combined [DTP] [DTaP] External cause Other external no information no information L ROSENDA EMA , DO Not Available codes: cause status (94339) Unspecified (2 Translations: sources.) [ OTHER ACTIVITY] Other bone Other Episodic Completed MAGGIE LÓPEZ , Not Ne ilable disease and specified DO (52608) musculoskeleta disorders of l deformities bone density (2 sources.) and structure, left ankle and foot Disorders of Pure no information no information MAGGIE GARANGELES R , Not Available lipid hypercholester DO (21377) metabolism (5 olemia, sources.) unspecified Superficial Superficial Episodic Completed ROBERT EMA , DO Not Available injury; injury of (57243) contusion (2 eyelids and sources.) periocular area External cause Unspecified no information no information ROBERT R SAMSON , DO Not Available codes: accident (63202) Natural/enviro nment (1 source.) Unclassified no information no information no information MAGGIE LÓPEZ [facility] (1 source.) [address] [place] [address] (96376) Procedures Procedure Normalized Procedure Procedure Result Performer Facility Date 03-16-2018 Duplex scan of lower no information MAGGIE LÓPEZ [facility] (20406) 06-09-2019 Electrocardiographic no information no name (no kym ne) [facility] (55010) Immunizations Normalized Immunization Date Notes Care Provider Facili ty Immunization NEGATED: Highlighted 03-17-2018 - no information MAGGIE LÓPEZ [phone] row has not 03-17-2018 [facility] occurred! (53596) influenza, injectable,quadrival ent, preservative free, pediatric Results Test Name Value Interpretation Reference Range Date Time Fa cility (Normalized) (Normalized) (Medline Reference) venous blood hemoglobin measurement (mass/volume) on 2018-03-18 Hemoglobin mass 14.2 g/dL (no code) 12.1 - 17.2 g/dL [facility] (Bld) [facility] (08330) serum or plasma urea nitrogen/creatin ine mass ratio on 2018-03-18 Urea 16 mg/mg (no code) 6 - 22 mg/mg [facility] nitrogen/Creatin [facility] ine mass ratio (21257) serum or plasma urea nitrogen measurement (mass/volume) on 2018-03-18 Urea nitrogen 15 mg/dL (no code) 7 - 20 mg/dL [facility] mass [facility] (19922) serum or plasma total bilirubin measurement (mass/volume) on 2018-03-18 Bilirubin mass 0.3 mg/dL (no code) 0.1 - 1.2 mg/dL [facility] (60883) serum or plasma sodium measurement (moles/volume) on 2018-03-18 Sodium molar 141 mmol/L (no code) 135 - 145 mmol/L [facility] (12052) serum or plasma protein measurement (mass/volume) on 2018-03-18 Protein mass 5.8 g/dL (L) 6.4 - 8.3 g/dL [facility] (20741) serum or plasma potassium measurement (moles/volume) on 2018-03-18 Potassium molar 3.4 mmol/L (L) 3.7 - 5.2 mmol/L [facility] (56403) serum or plasma glucose measurement (mass/volume) on 2018-03-18 Glucose mass 128 mg/dL (H) 60 - 125 mg/dL [facility] (05989) serum or plasma creatinine measurement with calculation of estimated glomerular filtration rate on 2018-03-18 GFR/1.73 sq M no information (no code) [facility] predicted among [facility] non-blacks MDRD (19562) vol rate/area (S/P/Bld) serum or plasma creatinine measurement (mass/volume) on 2018-03-18 Creatinine mass 0.93 mg/dL (no code) [facility] (10339) serum or plasma chloride measurement (moles/volume) on 2018-03-18 Chloride molar 109 mmol/L (H) 95 - 106 mmol/L [facility] (77317) serum or plasma calcium measurement (mass/volume) on 2018-03-18 Calcium mass 8.3 mg/dL (L) 8.5 - 10.2 mg/dL [facility] (57888) serum or plasma aspartate aminotransferase measurement (enzymatic activity/volume) on 2018-03-18 AST enzyme 16 U/L (no code) 10 - 34 U/L [facility] (62088) serum or plasma anion gap determination (moles/volume) on 2018-03-18 Anion gap 3 9 mmol/L (no code) 3 - 11 mmol/L [facility] molar [facility] (97600) serum or plasma alkaline phosphatase measurement (enzymatic activity/volume) on 2018-03-18 ALP enzyme 62 U/L (no code) 44 - 147 U/L [facility] act/[facility] (94436) serum or plasma albumin measurement (mass/volume) on 2018-03-18 Albumin mass 3.2 g/dL (no code) 3.4 - 5.4 g/dL [facility] (37056) serum or plasma alanine aminotransferase measurement (enzymatic activity/volume) on 2018-03-18 ALT enzyme 28 U/L (no code) 4 - 40 U/L [facility] (07296) prothrombin time (pt) in platelet poor plasma by coagulation assay on 2018-03-18 Prothrombin time 23.9 s (H) 9.4 - 12.5 s [facility] (PT) Coag time [facility] (PPP) (28663) manual eosinophils/100 leukocytes in nose on 2018-03-18 Eosinophils/100 0 (no code) [facility] WBC Manual cnt [facility] (Nose) (31334) manual blood segmented neutrophils/100 leukocytes on 2018-03-18 Segmented 77 % (no code) 35 - 80 % [facility] neutrophils/100 [facility] WBC Manual cnt (21014) (Bld) manual blood lymphocytes/100 leukocytes on 2018-03-18 Lymphocytes/100 8 % (no code) 20 - 40 % [facility] WBC Auto (Bld) [facility] (16315) inr in platelet poor plasma or blood by coagulation assay on 2018-03-18 INR Coag RelTime 2.1 (H) [facility] (Platelet poor [facility] plasma or blood) (42557) carbon dioxide on 2018-03-18 CO2 molar conc 23 mmol/L (no code) 23 - 29 mmol/L [facility] (49152) calcium measurement corrected for albumin on 2018-03-18 Albumin mass 8.9 g/dL (no code) 3.4 - 5.4 g/dL [facility] conc [facility] (33102) blood neutrophils automated count (number/volume) on 2018-03-18 Neutrophils Auto 13.3 10*3/uL (H) 1.7 - 7 10*3/uL [facility] #/vol (Bld) [facility] (49799) blood monocytes/100 leukocytes on 2018-03-18 Monocytes/100 3 % (no code) 2 - 8 % [facility] WBC Auto (Bld) [facility] (56703) Monocytes/100 5 % (no code) 2 - 8 % [facility] WBC Auto (d) [facility] (23491) blood monocytes automated count (number/volume) on 2018-03-18 Monocytes Auto 0.9 10*3/uL (no code) 0.3 - 0.9 [facility] #/vol (Bld) 10*3/uL [facility] (00818) blood lymphocytes variant/100 leukocytes on 2018-03-18 Variant 11 (no code) [facility] lymphocytes/100 [facility] WBC (d) (53802) blood lymphocytes automated count (number/volume) on 2018-03-18 Lymphocytes Auto 2.9 10*3/uL (no code) 0.9 - 2.9 [facility] #/vol (Bld) 10*3/uL [facility] (29805) blood leukocytes automated count (number/volume) on 2018-03-18 WBC Auto #/vol 17.1 10*3/uL (H) 3.5 - 10.5 [facility] (Bld) 10*3/uL [facility] (75067) blood hematocrit (volume fraction) on 2018-03-18 Hematocrit Auto 43 % (no code) 36.1 - 50.3 % [facility] Volume Fraction [facility] ([facility]) (99346) blood erythrocytes automated count (number/volume) on 2018-03-18 RBC Auto #/vol 4.78 10*6/uL (no code) 4.2 - 6.1 [facility] (Bld) 10*6/uL [facility] (91706) blood erythrocyte morphology finding identification on 2018-03-18 RBC morphology NORMAL (no code) [facility] finding Nom [facility] (d) (23270) blood band neutrophils/100 leukocytes on 2018-03-18 Band form 1 % (no code) 0 - 3 % [facility] neutrophils/100 [facility] WBC Manual cnt (45090) (Bld) automated erythrocyte mean corpuscular volume on 2018-03-18 MCV Auto Entitic 89 fL (no code) 80 - 100 fL [facility] volume (RBC) [facility] (59655) automated erythrocyte mean corpuscular hemoglobin concentration measurement (mass/volume) on 2018-03-18 MCHC Auto mass 33 g/dL (no code) 32 - 36 g/dL [facility] conc (RBC) [facility] (81365) automated erythrocyte mean corpuscular hemoglobin (mass per erythrocyte) on 2018-03-18 MCH Auto Entitic 30 pg (no code) 27 - 31 pg [facility] mass (RBC) [facility] (89141) automated erythrocyte distribution width ratio on 2018-03-18 Erythrocyte 14.7 % (H) 11.6 - 14.6 % [facility] distribution [facility] width Auto Ratio (25432) (RBC) automated eosinophil count on 2018-03-18 Eosinophils Auto 0.0 10*3/uL (no code) 0.05 - 0.5 [facility] #/vol (Bld) 10*3/uL [facility] (46693) automated blood platelet mean volume measurement on 2018-03-18 Platelet mean 10.5 fL (H) 7.2 - 11.7 fL [facility] volume Auto [facility] Entitic volume (34658) (Bld) automated blood platelet count (count/volume) on 2018-03-18 Platelets Auto 254 10*3/uL (no code) 150 - 450 [facility] #/vol (d) 10*3/uL [facility] (54910) automated blood neutrophils/100 leukocytes on 2018-03-18 Neutrophils/100 78 % (H) 40 - 60 % [facility] WBC Auto (d) [facility] (12042) automated blood lymphocytes/100 leukocytes on 2018-03-18 Lymphocytes/100 17 % (no code) 20 - 40 % [facility] WBC Auto (d) [facility] (97287) automated blood eosinophils/100 leukocytes on 2018-03-18 Eosinophils/100 0 % (no code) 1 - 4 % [facility] WBC Auto (d) [facility] (16909) automated blood basophils/100 leukocytes on 2018-03-18 Basophils/100 0 % (no code) 0.5 - 1 % [facility] WBC Auto (d) [facility] (62140) automated blood basophil count (count/volume) on 2018-03-18 Basophils Auto 0.0 10*3/uL (no code) 0 - 0.3 10*3/uL [facility] #/vol (d) [facility] (20315) vancomycin trough on 2018-03-17 Vancomycin 16.8 ug/mL (no code) 10 - 20 ug/mL [facility] trough mass [facility] (40048) blood lactic acid measurement (moles/volume) on 2018-03-15 Lactate molar 0.85 mmol/L (no code) 0.5 - 2.2 mmol/L [facility] (72685) bacterial blood culture on 2018-03-15 Bacteria No growth (no code) [facility] identified Cx [facility] Nom (Bld) (93668) Vital Signs The data below is from unstructured sources Vital Response Date/Time Temperature (Fahrenheit) 96.4 degree s F (97.6 - 99.5) 03/18/2018 8:00am Temperature (Calculated Celsius) 35. 35925 degrees C (36.4 - 37.5) 03/18/2018 8:00am Temperature Source Tympanic 03/18/2018 8:00am Pulse Rate (adult) 46 bpm (60 - 90) 03/18/2018 8:00am Respiratory Rate 20 bpm (12 - 24) 03/18/2018 8:00am O2 Sat by Pulse Oximetry 95 % (88 - 100) 03/18/2018 8:00am Blood Pressure 153/86 mm Hg 03/18/2018 8:00am Blood Pressure Mean 108 mm Hg (65 - 110) 03/18/2018 8:00am Pain Numeric Pain Scale 0-No Pain 03/18/2018 11:45am Height (Feet) 5 feet 6:33pm Height (Inches) 10.00 inches 03/15/2018 6:33pm Height (Calculated Centimeters) 177. 625378 cm 03/15/2018 6:33pm Weight (Pounds) 258 pounds 03/15/2018 6:33pm Weight (Ounces) 0.0 oz 1 05/16/2017 6:33pm Weight (Calculated Grams) 130555.83 gm 03/15/2018 6:33pm Weight (Calculated Kilograms) 117.02 6833 kilograms 03/15/2018 6:33pm Calculated BMI 37.0 02/27 6:33pm Weight Measurement Method [facility] 03/15/2018 6:33pm Vital Reading Result Col lection Date/Time Vital Reading Result Col lection Date/Time Interventions No Information Plan of Treatment Normalized Care Care Detail Care Activity Date Care Provider F acility Activity Patient Education no information no information DO MAGGIE LÓPEZ [facility] [address] [place] [address] (06290) Patient referral no information no information DO MAGGIE LÓPEZ [facility] [address] [place] [address] (78871) Goals Patient Goal Desired Goal no information no information Social History Normalized Code Original Code Date Value Tobacco smoking status Tobacco smoking status no information Never smoked tobacco NHIS NHIS (finding) no information no information 06-09-2019 Denies Use no information no information 06-09-2019 No no information no information 06-09-2019 Never a Smoker no information no information 03-15-2018 Cigarettes no information no information 06-09-2019 Yes Sex Assigned At Sex Assigned At no information M annie Functional Status The data below is from unstructured sources Query Response Date Yordan rded Comprehension Ability Understands Co ncepts March 15, 2018 8:10pm No Functional Status information available Mental Status The data below is from unstructured sourcesNo Mental Status Information Available Encounters Encounter Normalized Encounter Encounter Diagnosis Care Provi margareth Organization Date Type 06-09-2019 Emergency department no information (no phone) [facility] - patient visit Hospital (no phone) 06-09-2019 07-13-2011 Emergency department no information no name (no kym ne) no organization name - patient visit (no phone) 07-13-2011 03-15-2018 Evaluation and Cellulitis and abscess MAGGIE LÓPEZ Work no organization name - management of of lower limb ( no phone) 03-18-2018 inpatient 01-30-2017 Patient encounter no information no name (no phone) no organization name (no phone) 01-23-2017 Patient encounter no information no name (no phone) no organization name (no phone) 01-16-2017 Patient encounter no information no name (no phone) no organization name (no phone) 12-31-2016 Patient encounter no information no name (no phone) no organization name (no phone) 03-15-2018 Patient encounter no information no name (no phone) no organization name - procedure (no phone) 03-18-2018 04-30-2016 Patient encounter no information no name (no phone) no organization name procedure (no phone) 04-25-2015 Patient encounter no information no name (no phone) no organization name procedure (no phone) 01-08-2015 Patient encounter no information no name (no phone) no organization name procedure (no phone) Medical Equipment The data below is from unstructured sourcesNo Medical Equipment Information available Payers Normalized Payer Value Unknown [id number]) Unknown no information ([id number]) Evaluation note Note Type Note Facility Evaluation No Assessments Information Available [facility] ([id number]) Advance Directives Directive Response Recor ded Date/Time Advance Directives Yes 0 07/13/11 9:31am Health Care Power of Supervisor No 07/13/11 9:31am Organ Donor Yes 07/13/11 9:31am Advance Directive Response Recorded Date/Time Advance Directives No [facility] 2019 11:30am Health Care Power of Supervisor No July 13, 2011 9:31am Organ Donor Yes July 122011 9:31am Resuscitation Status Full Code June 09, 2019 11:30am Discharge Instructions No hospital discharge instructions.No hospital discharge instruction information available. Chief Complaint and Reason for Visit Chief Complaint R LEG CELLULITIS Reason for Visit Cellulitis and absc ess of right leg History of DVT of lower extremity Lymphedema of right lower extremity Hypertension Dermatitis Gout Chief Complaint Upper Extremity Reason for Visit [id number] Additional Source Comments This clinical document has been generated using [employer] software that has been certified by the Office of the National Coordinator for Health Information Technology (ONC 15.99.04.3023.Diam.31.00.0.564590) and the National Committee for [employer] (NCQA, as an eMeasure certified technology). FOR RECORDS PERTAINING TO PATIENTS WHO ARE OR HAVE BEEN ENROLLED IN A CHEMICAL D EPENDENCY/SUBSTANCE ABUSE PROGRAM, SOME INFORMATION MAY BE OMITTED. This clinica l summary was aggregated from multiple sources. Caution should be exercised in using it in the provision of clinical care. This summary normalizes information from multiple sources, and as a consequence, information in this document may ma terially change the coding, format and clinical context of patient data. In lorenza tion, data may be omitted in some cases. CLINICAL DECISIONS SHOULD BE BASED ON T HE PRIMARY CLINICAL RECORDS. [employer] provides no warranty or guara ntee of the accuracy or completeness of information in this document.The followi ng information is based on time limited clinical information
== END 2019-06-09 12:59 | disposition home or self-care (01) ==
LOC: EDUNIT# 11:00 → ER 11:01
DX: M25.512 Pain in left shoulder (principal); G40.89 Other seizures; I10 Essential (primary) hypertension; Z79.52 Long term (current) use of systemic steroids; Z79.01 Long term (current) use of anticoagulants; Z87.891 Personal history of nicotine dependence; Z86.718 Personal history of other venous thrombosis and embolism; Z80.0 Family history of malignant neoplasm of digestive organs; Z82.49 Family history of ischemic heart disease and other diseases of the circulatory system
CPT/HCPCS: 36415; 80053; 83735; 84443; 84484; 85025; 85610; 86141; 93005; 93041

== ENCOUNTER → 2022-05-20 | Outpatient (CLI) | payer OTHER ==
[~2022-05-20] MED LIST changes: -DOXY100C2 PO; +DOXY100C5 PO; +HYDR-4226 PO; +LEVE500T99 PO; -LISI2.5T PO; +LISI2.5T13 PO; +POTA-160 PO; -POTA10TA6 PO; -WARF5TAB PO; +WARF5TAB2 PO
--- NOTE | 2022-05-20 17:06 | Diagnostic Imaging Report ---
LUMBAR SPINE - 2-3 VIEWS INDICATION: Back pain COMPARISON: None available. TECHNIQUE: 3 views of the lumbar spine. FINDINGS: Severe facet osteoarthritis is present at L5-S1. There is approximately 6 mm anterolisthesis of L5 on S1. Interspinous degenerative changes are also present from L2-L3 through L5-S1. Vertebral bodies are normal in stature without compression deformity. Intervertebral disc space heights are well-preserved. IVC filter is noted. IMPRESSION: 1. Grade 1 anterolisthesis of L5 on S1 due to facet osteoarthritis. Dictated by: Dictated on workstation # [id number]
== END ==
LOC: RAD 11:40
PROVIDERS: ATTEND Internal Medicine
DX: M43.17 Spondylolisthesis, lumbosacral region (principal); M47.817 Spondylosis without myelopathy or radiculopathy, lumbosacral region
CPT/HCPCS: 72100